=== PATIENT | female | born 1980 | race Caucasian/White ===

== ENCOUNTER 2017-07-03 19:32 | Inpatient (IN) | payer BC, OTHER ==
[~2017-07-03] VITALS: Ht 154.9 cm; Wt 54.2 kg
[~2017-07-03 19:32] MED LIST: ACET-1256 PO; OXYC-57 PO; PHNRUNK PO
[2017-07-03] MEDS ORDERED: METHYLPREDNISOLONE 125 MG VIAL IV STA (19:49)
--- NOTE | 2017-07-03 19:50 | EMERGENCY ROOM VISIT NOTE ---
History Report prepared by Vishnu: Yue Borrego Under the Supervision of: Dr. Aly Torrez M.D. 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 She denies ever being intubated or in the ICU for her asthma. She was a former smoker and stopped smoking in April 2017. She has a dry cough but denies any fevers or chills. She notes she has taken 15 pumps of her rescue inhaler, but there is been no improvement. She denies any recent travel, exogenous hormone usage, hemoptysis. 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 A total of ten systems were reviewed and were otherwise negative. Past Medical & Surgical Medical Problems: (1) Respiratory failure, acute Family History FH: cancer FH: diabetes mellitus No pertinent family history Social History Smoking Status: Former Smoker Smokeless Tobacco Use: Yes (half a pack) Alcohol Use: none Occupation Status: employed Current/Historical Medications Scheduled Montelukast Sodium (Singulair), 10 MG PO DAILY Scheduled PRN Albuterol Sulfate (Proair Respiclick), 2 PUFFS INH UD PRN for Rescue/SOB/ Wheezing Loratadine (Claritin), 10 MG PO DAILY PRN for Allergy Symptoms Allergies Coded Allergies: No Known Allergies (Unverified , 12/21/09) Physical Exam Vital Signs Date Time Temp Pulse Resp B/P (MAP) Pulse Ox O2 Delivery O2 Flow Rate FiO2 07/03/17 22:03 87 07/03/17 21:20 97 21 111/63 07/03/17 20:21 Nasal Cannula 3.0 07/03/17 20:20 85 07/03/17 20:10 82 20 93 Nasal Cannula 3.0 07/03/17 19:50 90 Room Air 07/03/17 19:41 36.7 86 24 149/89 91 Room Air Physical Exam Physical Exam GENERAL: She is oriented to person, place, and time. She appears well- developed and well-nourished. She does appear distressed. ____ HENT: Exam performed. Head: Normocephalic and atraumatic. Right Ear: External ear normal. No mastoid tenderness. Left Ear: External ear normal. No mastoid tenderness. Mouth/Throat: The oropharynx is clear and moist. No trismus in the jaw. No dental abscesses or uvula swelling. No oropharyngeal exudate or tonsillar abscesses. ____ EYES: Conjunctivae and EOM are normal. Pupils are equal, round, and reactive to light. Right eye exhibits no discharge. Left eye exhibits no discharge. No scleral icterus. ____ NECK: Normal range of motion. Neck supple. No JVD present. No spinous process tenderness present. No carotid bruit present. No rigidity. No tracheal deviation and normal range of motion present. No Brudzinski's sign and no Kernig 's sign noted. ____ CV: Tachycardic rate, regular rhythm, normal heart sounds and intact distal pulses. There is no peripheral edema. Palpable radial pulses bue. ____ PULM/CHEST: Diffuse expiratory wheezes and retractions. Chest Wall: She exhibits no tenderness. ____ ABD: The abdomen is soft. Bowel sounds are normal. She has no distension. No mass is present. There is no tenderness. There is no rebound, no guarding, no Alatorre's sign and no tenderness at McBurney's point. Rovsig negative MUSC/SKEL: Normal range of motion. There is no peripheral edema, tenderness or deformity. LYMPH: No cervical adenopathy. ____ NEURO: She is alert and oriented to person, place, and time. She has normal strength. No cranial nerve deficit or sensory deficit. Coordination and gait normal. GCS eye subscore is 4. GCS verbal subscore is 5. GCS motor subscore is 6. Cerebellar tests wnl. ____ SKIN: Skin is warm and dry. She is not diaphoretic. ____ PSYCH: She has a normal mood and affect. Her behavior is normal. Judgment and thought content normal. ____ Medical Decision & Procedures ER Provider Diagnostic Interpretation: Radiology results as stated below per my review and radiologist interpretation: SINGLE VIEW CHEST CLINICAL HISTORY: Wheezing. Dyspnea. FINDINGS: An AP, portable, upright chest radiograph is compared to study dated 07/28/2014. The examination is degraded by portable technique and patient rotation. The cardiomediastinal silhouette is unremarkable. The lungs and pleural spaces are clear. No pneumothorax is seen. The bony thorax is grossly intact. IMPRESSION: No active disease in the chest. Electronically signed by: Loco Mccormick M.D. 07/03/2017 8:27 PM Dictated Date/Time: 07/03/2017 8:26 PM Laboratory Results 07/03/17 19:55 Red Blood Count 4.72, Mean Corpuscular Volume 88.8, Mean Corpuscular Hemoglobin 31.1, Mean Corpuscular Hemoglobin Concent 35.1, Mean Platelet Volume 9.6, Neutrophils (%) (Auto) 58.7, Lymphocytes (%) (Auto) 27.2, Monocytes (%) (Auto) 7.0, Eosinophils (%) (Auto) 6.6, Basophils (%) (Auto) 0.3, Neutrophils # (Auto) 5.52, Lymphocytes # (Auto) 2.56, Monocytes # (Auto) 0.66, Eosinophils # (Auto) 0.62, Basophils # (Auto) 0.03 07/03/17 19:55 Test 07/03/17 19:55 07/03/17 20:10 White Blood Count 9.41 K/uL (4.8-10.8) Red Blood Count 4.72 M/uL (4.2-5.4) Hemoglobin 14.7 g/dL (12.0-16.0) Hematocrit 41.9 % (37-47) Mean Corpuscular Volume 88.8 fL (80-100) Mean Corpuscular Hemoglobin 31.1 pg (25-34) Mean Corpuscular Hemoglobin Concent 35.1 g/dl (32-36) Platelet Count 278 K/uL (130-400) Mean Platelet Volume 9.6 fL (7.4-10.4) Neutrophils (%) (Auto) 58.7 % Lymphocytes (%) (Auto) 27.2 % Monocytes (%) (Auto) 7.0 % Eosinophils (%) (Auto) 6.6 % Basophils (%) (Auto) 0.3 % Neutrophils # (Auto) 5.52 K/uL (1.4-6.5) Lymphocytes # (Auto) 2.56 K/uL (1.2-3.4) Monocytes # (Auto) 0.66 K/uL (0.11-0.59) Eosinophils # (Auto) 0.62 K/uL (0-0.5) Basophils # (Auto) 0.03 K/uL (0-0.2) RDW Standard Deviation 41.8 fL (36.4-46.3) RDW Coefficient of Variation 12.8 % (11.5-14.5) Immature Granulocyte % (Auto) 0.2 % Immature Granulocyte # (Auto) 0.02 K/uL (0.00-0.02) Anion Gap 6.0 mmol/L (3-11) Est Creatinine Clear Calc Drug Dose 74.5 ml/min Estimated GFR () 112.6 Estimated GFR (Non- 97.1 BUN/Creatinine Ratio 9.6 (10-20) Calcium Level 9.1 mg/dl (8.5-10.1) Magnesium Level 2.0 mg/dl (1.8-2.4) Venous Blood pH 7.41 (7.36-7.41) Venous Blood Partial Pressure CO2 44 mmHg (38.0-50.0) Venous Blood Partial Pressure O2 21 mmHg Venous Blood HCO3 27 mmol/L Venous Blood Oxygen Saturation < 60.0 % Venous Blood Base Excess 2.1 mEq/L Lactic Acid Level 1.6 mmol/L (0.4-2.0) Laboratory results reviewed by me Medications Administered Medications (Trade) Dose Ordered Sig/Dina Route Start Time Stop Time Status Last Admin Dose Admin Albuterol/ Ipratropium (Duoneb) 12 ml ONE ONCE INH 07/03/17 20:00 07/03/17 20:01 DC 07/03/17 20:09 12 ML Methylprednisolone Sodium Succinate (Solu-Medrol IV) 125 mg NOW STAT IV 07/03/17 19:49 07/03/17 19:51 DC 07/03/17 20:15 125 MG Sodium Chloride 1,000 ml @ 999 mls/hr Q1H1M STAT IV 07/03/17 19:58 07/03/17 21:03 DC 07/03/17 20:15 999 MLS/HR Albuterol/ Ipratropium (Duoneb) 3 ml NOW STAT INH 07/03/17 22:00 07/03/17 22:01 DC 07/03/17 22:03 3 ML ED Course 1947: The patient was evaluated in room B2. A complete history and physical exam was performed. Patient was immediately hooked up to rock wool applicator where her oxygen saturation continued to be 90%, she was started on 2 L oxygen. She stated she felt better with the oxygen. Labs ordered. Respiratory call to deliver the patient continuous albuterol treatment. 1948: Solu-Medrol IV 125 mg IV 1957: Sodium Chloride 1000 ml @ 999 mls/hr IV 2004: I checked on the patient at this time. She is currently getting her nebulizer treatment, and she feels much better. Her retractions have ceased. Her stats are stable on the nebulizer treatment. Labs and imaging are pending. 2202: Labs within normal limits. Chest x-ray within normal limits. Status post hour long DuoNeb treatment, the patient states she feels better. On lung auscultation she continues to have wheezing. The patient was taken off oxygen and attempted to have a walking oxygen saturation on, the patient immediately became tachypneic started wheezing and stated she felt like her asthma was but the flareup, her oxygen saturation dropped to 87% on room air. The patient was placed back on oxygen and given a repeat DuoNeb. Discussed the patient's case with Dr. Pearson, [facility]. The patient will be evaluated for further treatment and disposition. Medical Decision 1947: The patient was evaluated in room B2. A complete history and physical exam was performed. Patient was immediately hooked up to rock wool applicator where her oxygen saturation continued to be 90%, she was started on 2 L oxygen. She stated she felt better with the oxygen. Labs ordered. Respiratory call to deliver the patient continuous albuterol treatment. 1948: Solu-Medrol IV 125 mg IV 1957: Sodium Chloride 1000 ml @ 999 mls/hr IV 2004: I checked on the patient at this time. She is currently getting her nebulizer treatment, and she feels much better. Her retractions have ceased. Her stats are stable on the nebulizer treatment. Labs and imaging are pending. 2202: Labs within normal limits. Chest x-ray within normal limits. Status post hour long DuoNeb treatment, the patient states she feels better. On lung auscultation she continues to have wheezing. The patient was taken off oxygen and attempted to have a walking oxygen saturation on, the patient immediately became tachypneic started wheezing and stated she felt like her asthma was but the flareup, her oxygen saturation dropped to 87% on room air. The patient was placed back on oxygen and given a repeat DuoNeb. Discussed the patient's case with Arabella Diaz. The patient will be evaluated for further treatment and disposition. Medication Reconcilliation Current Medication List: was personally reviewed by me Blood Pressure Screening Patient's blood pressure: Elevated blood pressure Blood pressure disposition: Elevated BP felt to be situational Consults Time Called: 2199 Consulting Physician: Arabella Diaz Returned Call: 2201 He will further valuate the patient. Impression Primary Impression: Hypoxia Additional Impression: Status asthmaticus Critical Care I have personally spent greater than 58 minutes of critical care time in the direct management of this patient. This includes bedside care, interpretation of diagnostic studies, and testing, discussion with consultants, patient, and family members, and other required patient management activities. This 58 minutes is in excess of all separately billable procedures. Scribe Attestation The scribe's documentation has been prepared under my direction and personally reviewed by me in its entirety. I confirm that the note above accurately reflects all work, treatment, procedures, and medical decision making performed by me. The chart was completed utilizing [employer] Speech voice recognition software. Grammatical errors, random word insertions, pronoun errors, and incomplete sentences are an occasional consequence of this system due to software limitations, ambient noise, and hardware issues. Any formal questions or concerns about the content, text, or information contained within the body of this dictation should be directly addressed to the physician for clarification. Departure Information Dispostion Being Evaluated By Hospitalist ([facility] Referrals No Doctor, Assigned (PCP) Patient Instructions My [facility] Problem Qualifiers Additional Impression: Status asthmaticus Asthma severity: moderate Asthma persistence: persistent Qualified Codes: J45.42 - Moderate persistent asthma with status asthmaticus
[2017-07-03] MEDS ORDERED: SODIUM CHLORIDE 0.9% 1000ML 1,000 ML IV STA (19:58)
[2017-07-03] MEDS ORDERED: ALBUT/IPRATROP 3MG/0.5MG NEB 3 ML VIAL INH ONE (20:00)
[2017-07-03 20:10] VITALS: PULSE 82; O2SAT 93
[2017-07-03 20:17] LABS: BASO % 0.3 %; BASO ABS # 0.03 K/uL (0-0.2); EOS % 6.6 %; EOS ABS # 0.62 K/uL (0-0.5); HEMATOCRIT 41.9 % (37-47); HEMOGLOBIN 14.7 g/dL (12.0-16.0); IG# 0.02 K/uL (0.00-0.02); LYMPH % 27.2 %; LYMPH ABS # 2.56 K/uL (1.2-3.4); MEAN CELL VOLUME 88.8 fL (80-100); MEAN CORPUSCULAR HEMOGLOBIN 31.1 pg (25-34); MEAN CORPUSCULAR HGB CONC 35.1 g/dl (32-36); MEAN PLATELET VOLUME 9.6 fL (7.4-10.4); MONO ABS # 0.66 K/uL (0.11-0.59); NEUT % 58.7 %; NEUT ABS # 5.52 K/uL (1.4-6.5); PLATELET COUNT 278 K/uL (130-400); RED CELL DISTRIBUTION WIDTH CV 12.8 % (11.5-14.5); RED CELL DISTRIBUTION WIDTH SD 41.8 fL (36.4-46.3); WHITE BLOOD COUNT 9.41 K/uL (4.8-10.8)
--- NOTE | 2017-07-03 20:28 | DIAGNOSTIC IMAGING REPORT ---
SINGLE VIEW CHEST CLINICAL HISTORY: Wheezing. Dyspnea. FINDINGS: An AP, portable, upright chest radiograph is compared to study dated 07/28/2014. The examination is degraded by portable technique and patient rotation. The cardiomediastinal silhouette is unremarkable. The lungs and pleural spaces are clear. No pneumothorax is seen. The bony thorax is grossly intact. IMPRESSION: No active disease in the chest. Electronically signed by: Loco Mccormick M.D. 07/03/2017 8:27 PM Dictated Date/Time: 07/03/2017 8:26 PM
[2017-07-03 20:37] LABS: CALCIUM 9.1 mg/dl (8.5-10.1); CREATININE 0.78 mg/dl (0.60-1.20)
[2017-07-03] MEDS ORDERED: CLR10 PO (21:51)
[2017-07-03] MEDS ORDERED: ALBU18002 INH (21:51)
[2017-07-03] MEDS ORDERED: MONT1TAB3 PO (21:51)
[2017-07-03] MEDS ORDERED: ALBUT/IPRATROP 3MG/0.5MG NEB 3 ML VIAL INH STA (22:00)
[2017-07-03] MEDS ORDERED: POTASSIUM CHLORIDE 10 MEQ TABCR PO STA (22:03)
[2017-07-03 22:23] LABS: PTT PATIENT 27.6 SECONDS (21.0-31.0)
[2017-07-03] MEDS ORDERED: GUAIFENESIN 600 MG TABCR PO ONE (22:52)
[2017-07-03] MEDS ORDERED: ACETAMINOPHEN 325 MG TAB PO PRN (23:00)
[2017-07-03] MEDS ORDERED: NSS + 20MEQ KCL 1000ML 1,000 ML IV ONE (23:00)
[2017-07-03] MEDS ORDERED: LEVALBUTEROL/IPRATROPIUM NEB INH PRN (23:00)
[2017-07-03] MEDS ORDERED: LORATADINE 10 MG TAB PO PRN (23:00)
[2017-07-03] MEDS ORDERED: METHYLPREDNISOLONE 4MG TAB, 6 DAY TAPER PO SCH (23:00)
[2017-07-03] MEDS ORDERED: LORAZEPAM 2 MG/ML 1 ML VIAL IV PRN (23:00)
[2017-07-03] MEDS ORDERED: TRAMADOL HCL 50 MG TAB PO PRN (23:00)
--- NOTE | 2017-07-03 23:42 | HISTORY & PHYSICAL EXAMINATION ---
DATE OF ADMISSION: 07/03/2017 PRIMARY CARE PHYSICIAN: Dr. Baptiste. CHIEF COMPLAINT: Shortness of breath. HISTORY OF PRESENT ILLNESS: History obtained from patient and records. Medical history significant for asthma, past tobacco abuse. P the patient has had asthma since childhood. No prior intubations for asthma. Usual precipitants include cat dander and change in weather, some chemicals. Usual rescue inhaler use is about twice weekly. No recent hospitalizations, ER visits for asthma. Last asthma exacerbation was last month after exposure to cat dander. About 2 nights ago, the patient noted asthma attack w/ dry cough symptoms, wheezing, increasing shortness of breath despite rescue inhaler use about 15 times/daily. No chest pain, no fever, no flulike symptoms. Patient stopped smoking some time ago but admits to recent vape use. At the ER, the patient received Solu-Medrol and DuoNebs for asthma exacerbation. O2 sats noted to be 80s despite above intervention. MEDICAL HISTORY: As above. SURGERIES: Foot surgery. HOME MEDICATIONS: Include Singulair, loratadine. ALLERGIES: No known drug allergies. FAMILY HISTORY: Diabetes. PERSONAL AND SOCIAL HISTORY: Past tobacco use. Occasional alcoholic beverage intake. [employer] forensic audit expert REVIEW OF SYSTEMS: As per HPI. All 10 systems reviewed , all other ROS negative. PHYSICAL EXAMINATION: VITAL SIGNS: Blood pressure was noted to be 149/ 89, later 111/60, pulse rate 67, RR 24, O2 sats 90 on room air, later 87 on room air and later 93 on 2 liters. GENERAL: Noted to be in slightly anxious, minimal resp distress. SKIN: Normal color, warm. HEENT: Pale palpebral conjunctiva. No ptosis. Dry mucosa. NECK: Supple, nontender. LUNGS: Decreased breath sounds. Expiratory wheezes. HEART: Regular rate and rhythm, no murmur. ABDOMEN: Some distention, nontender. EXTREMITIES: No edema. No gross deformities. No tenderness. NEUROLOGIC: Coherent. No gross focality. LABORATORY DATA: Hemoglobin was noted to be 14.7, hematocrit 41.9, white blood cell count 9.41, platelets 278. Sodium noted to 136, potassium 3, chloride 105, CO2 26, BUN 8, creatinine 0.7, glucose 69. Venous blood gas showed a pH of 7.41, pCO2 of 44. CXR no active disease ASSESSMENT: 1. Acute hypoxemic respiratory distress secondary to asthma exacerbation. 2. Past tobacco abuse, current vape use 3. Hypokalemia, hypoglycemia possibly secondary to poor p.o. intake PLAN. GMF Supplemental O2 Medrol Dosepak. Nebs RTC, p.r.n. Patient counseled on stopping vaping. Replace potassium, check mag. DVT prophylaxis, Lovenox subQ. Full code. MTDD
[2017-07-04] VITALS (12 sets, daily range): BP systolic 103–111; BP diastolic 63–68; PULSE 77–97; TEMP 36.5–37; O2SAT 88–95; Ht 154.9 cm; Wt 54.2 kg
[2017-07-04] MEDS ORDERED: NSS + 20MEQ KCL 1000ML 1,000 ML IV ONE (00:30)
[2017-07-04] MEDS ORDERED: POTASSIUM CHLORIDE 10 MEQ TABCR PO ONE (01:00)
[2017-07-04] MEDS ORDERED: LEVALBUTEROL 1.25MG/0.5ML NEB INH PRN (01:00)
[2017-07-04] MEDS ORDERED: IPRATROPIUM BROMIDE NEB SOLN 0.02% 2.5 ML VIAL INH PRN (01:00)
[2017-07-04] MEDS ORDERED: LORAZEPAM INJ 0.5 MG in SYRINGE 0.75 ML IV PRN (01:00)
[2017-07-04] MEDS: LEVALBUTEROL 1.25MG/0.5ML NEB INH SCH ×3 (01:39→14:52)
[2017-07-04] MEDS: IPRATROPIUM BROMIDE NEB SOLN 0.02% 2.5 ML VIAL INH SCH ×3 (01:40→14:52)
[2017-07-04] MEDS ORDERED: PNEUMOCOCCAL POLYSACCHARIDES 25 MCG/0.5 ML VIAL/SYR IM. ONE (01:45)
[2017-07-04] MEDS ORDERED: INFLUENZA VIRUS QUAD VACCINE 0.5 ML SYR IM. ONE (01:45)
[2017-07-04] MEDS ORDERED: PNEUMOCOCCAL ADMINISTRATION CHARGE ONE (01:45)
[2017-07-04] MEDS ORDERED: INFLUENZA ADMINISTRATION CHARGE ONE (01:45)
[2017-07-04] MEDS ORDERED: LEVALBUTEROL/IPRATROPIUM NEB INH SCH (03:00)
[2017-07-04 06:56] LABS: BASO % 0.1 %; BASO ABS # 0.01 K/uL (0-0.2); HEMATOCRIT 37.3 % (37-47); HEMOGLOBIN 13.3 g/dL (12.0-16.0); IG# 0.01 K/uL (0.00-0.02); LYMPH % 7.7 %; MEAN CELL VOLUME 88.8 fL (80-100); MEAN CORPUSCULAR HEMOGLOBIN 31.7 pg (25-34); MEAN CORPUSCULAR HGB CONC 35.7 g/dl (32-36); MEAN PLATELET VOLUME 9.6 fL (7.4-10.4); MONO % 1.8 %; MONO ABS # 0.14 K/uL (0.11-0.59); NEUT % 90.3 %; PLATELET COUNT 259 K/uL (130-400); RED CELL DISTRIBUTION WIDTH SD 41.9 fL (36.4-46.3); WHITE BLOOD COUNT 7.76 K/uL (4.8-10.8)
[2017-07-04] MEDS ORDERED: METHYLPREDNISOLONE 4 MG TAB PO SCH ×2 (07:00→13:00)
[2017-07-04 07:37] LABS: CALCIUM 9.2 mg/dl (8.5-10.1); CREATININE 0.71 mg/dl (0.60-1.20); POTASSIUM 4.3 mmol/L (3.5-5.1)
[2017-07-04] MEDS ORDERED: METHYLPREDNISOLONE 4MG TAB, 6 DAY TAPER PO SCH (08:00)
[2017-07-04] MEDS ORDERED: ENOXAPARIN 30 MG/0.3 ML SYR SQ SCH (09:00)
[2017-07-04] MEDS ORDERED: GUAIFENESIN 600 MG TABCR PO SCH (09:00)
[2017-07-04] MEDS ORDERED: MONTELUKAST SOD 10 MG TAB PO SCH (09:00)
--- NOTE | 2017-07-04 14:29 | Progress Note ---
Medicine Progress Note Date & Time of Visit: Jul 04, 2017 at 14:29 . Subjective Admitted with exacerbation of asthma. Feels much better. Nonproductive cough improved. Wheezing and dyspnea improved. Ambulating in hallway on room air without difficulty. . Objective Last 8 Hrs Date Time Temp Pulse Resp B/P (MAP) Pulse Ox O2 Delivery O2 Flow Rate FiO2 07/04/17 14:00 94 Room Air 07/04/17 13:35 92 Nasal Cannula 2.0 07/04/17 13:30 88 Room Air 07/04/17 08:00 94 Nasal Cannula 2.0 07/04/17 07:15 36.6 87 22 103/63 (76) 94 Nasal Cannula 4.0 07/04/17 07:12 97 18 95 Nasal Cannula 2.0 Physical Exam: General- young adult female in no distress Lungs- diffuse mild wheezing; no respiratory distress Cardiovascular- RRR; no pretibial edema Abdomen- + bowel sounds, soft, nontender Extremities- no cyanosis; no calf tenderness Neuro- alert, oriented Skin- warm & dry . Laboratory Results: Last 24 Hours Test 07/03/17 19:50 07/03/17 19:55 07/03/17 20:10 07/04/17 00:35 Urine Test NEG White Blood Count 9.41 K/uL Red Blood Count 4.72 M/uL Hemoglobin 14.7 g/dL Hematocrit 41.9 % Mean Corpuscular Volume 88.8 fL Mean Corpuscular Hemoglobin 31.1 pg Mean Corpuscular Hemoglobin Concent 35.1 g/dl Platelet Count 278 K/uL Mean Platelet Volume 9.6 fL Neutrophils (%) (Auto) 58.7 % Lymphocytes (%) (Auto) 27.2 % Monocytes (%) (Auto) 7.0 % Eosinophils (%) (Auto) 6.6 % Basophils (%) (Auto) 0.3 % Neutrophils # (Auto) 5.52 K/uL Lymphocytes # (Auto) 2.56 K/uL Monocytes # (Auto) 0.66 K/uL Eosinophils # (Auto) 0.62 K/uL Basophils # (Auto) 0.03 K/uL RDW Standard Deviation 41.8 fL RDW Coefficient of Variation 12.8 % Immature Granulocyte % (Auto) 0.2 % Immature Granulocyte # (Auto) 0.02 K/uL Activated Partial Thromboplast Time 27.6 SECONDS Partial Thromboplastin Ratio 1.1 D-Dimer 260 ug/L FEU Sodium Level 137 mmol/L Potassium Level 3.0 mmol/L Chloride Level 105 mmol/L Carbon Dioxide Level 26 mmol/L Anion Gap 6.0 mmol/L Blood Urea Nitrogen 8 mg/dl Creatinine 0.78 mg/dl Est Creatinine Clear Calc Drug Dose 74.5 ml/min Estimated GFR () 112.6 Estimated GFR (Non- 97.1 BUN/Creatinine Ratio 9.6 Random Glucose 69 mg/dl Calcium Level 9.1 mg/dl Magnesium Level 2.0 mg/dl Venous Blood pH 7.41 Venous Blood Partial Pressure CO2 44 mmHg Venous Blood Partial Pressure O2 21 mmHg Venous Blood HCO3 27 mmol/L Venous Blood Oxygen Saturation < 60.0 % Venous Blood Base Excess 2.1 mEq/L Lactic Acid Level 1.6 mmol/L Troponin I < 0.015 ng/ml Test 07/04/17 06:31 07/04/17 07:38 07/04/17 11:33 White Blood Count 7.76 K/uL Red Blood Count 4.20 M/uL Hemoglobin 13.3 g/dL Hematocrit 37.3 % Mean Corpuscular Volume 88.8 fL Mean Corpuscular Hemoglobin 31.7 pg Mean Corpuscular Hemoglobin Concent 35.7 g/dl Platelet Count 259 K/uL Mean Platelet Volume 9.6 fL Neutrophils (%) (Auto) 90.3 % Lymphocytes (%) (Auto) 7.7 % Monocytes (%) (Auto) 1.8 % Eosinophils (%) (Auto) 0.0 % Basophils (%) (Auto) 0.1 % Neutrophils # (Auto) 7.00 K/uL Lymphocytes # (Auto) 0.60 K/uL Monocytes # (Auto) 0.14 K/uL Eosinophils # (Auto) 0.00 K/uL Basophils # (Auto) 0.01 K/uL RDW Standard Deviation 41.9 fL RDW Coefficient of Variation 13.0 % Immature Granulocyte % (Auto) 0.1 % Immature Granulocyte # (Auto) 0.01 K/uL Prothrombin Time 10.7 SECONDS Prothromb Time International Ratio 1.0 Sodium Level 138 mmol/L Potassium Level 4.3 mmol/L Chloride Level 110 mmol/L Carbon Dioxide Level 19 mmol/L Anion Gap 9.0 mmol/L Blood Urea Nitrogen 7 mg/dl Creatinine 0.71 mg/dl Est Creatinine Clear Calc Drug Dose 81.8 ml/min Estimated GFR () 126.1 Estimated GFR (Non- 108.8 BUN/Creatinine Ratio 9.4 Random Glucose 163 mg/dl Calcium Level 9.2 mg/dl Bedside Glucose 158 mg/dl 109 mg/dl Assessment & Plan EXACERBATION ASTHMA No infiltrates on chest x-ray. Exacerbation could be secondary to elevation of chemical irritants (vaping, cleaning solutions at work). No apparent infectious process. Discharge on methylprednisolone taper, albuterol, montelukast. Monitor peak flow rates. Consider follow-up PFTs. Consider long-acting inhaled steroids. Avoid potential triggers. VTE PROPHYLAXIS SQ enoxaparin. Ambulating. DISPOSITION Discharge to home. Family Medicine follow-up with Dr. Baptiste. , Current Inpatient Medications: Current Inpatient Medications Medications (Trade) Dose Ordered Sig/Dina Route Start Time Stop Time Status Last Admin Dose Admin Enoxaparin Sodium (Lovenox Inj) 30 mg DAILY SQ 07/04/17 09:00 08/03/17 08:59 07/04/17 08:51 30 MG Acetaminophen (Tylenol Tab) 650 mg Q4H PRN PO 07/03/17 23:00 08/02/17 22:59 Lorazepam (Ativan Inj) 0.5 mg Q4H PRN IV 07/03/17 23:00 08/02/17 22:59 Guaifenesin (Mucinex Contr Rel Tab) 600 mg Q12 PO 07/04/17 09:00 08/03/17 08:59 07/04/17 08:47 600 MG Tramadol HCl (Ultram Tab) 25 mg Q6H PRN PO 07/03/17 23:00 08/02/17 22:59 Loratadine (Claritin Tab) 10 mg DAILY PRN PO 07/03/17 23:00 08/02/17 22:59 Montelukast Sodium (Singulair Tab) 10 mg DAILY PO 07/04/17 09:00 08/03/17 08:59 07/04/17 08:46 10 MG Ipratropium [place] (Atrovent 0.02% 0.5MG/2.5ML Neb) 0.5 mg Q6R INH 07/04/17 03:00 08/03/17 02:59 07/04/17 07:11 0.5 MG Levalbuterol (Xopenex 1.25MG/ 0.5ML Neb) 1.25 mg Q6R INH 07/04/17 03:00 08/03/17 02:59 07/04/17 07:11 1.25 MG Ipratropium [place] (Atrovent 0.02% 0.5MG/2.5ML Neb) 0.5 mg Q4H PRN INH 07/04/17 01:00 08/03/17 00:59 07/04/17 05:38 0.5 MG Levalbuterol (Xopenex 1.25MG/ 0.5ML Neb) 1.25 mg Q4H PRN INH 07/04/17 01:00 08/03/17 00:59 07/04/17 05:38 1.25 MG Lorazepam 0.5 mg/ Syringe 1 ml @ 1 mls/min Q4H PRN IV 07/04/17 01:00 08/03/17 00:59 Methylprednisolone (Medrol Tab) 8 mg 07,21 PO 07/04/17 07:00 07/04/17 21:01 07/04/17 06:22 8 MG Methylprednisolone (Medrol Tab) 4 mg 13,18 PO 07/04/17 13:00 07/04/17 18:01 07/04/17 12:47 4 MG Methylprednisolone (Medrol Tab) 4 mg 07,13,18 PO 07/05/17 07:00 07/05/17 18:01 Methylprednisolone (Medrol Tab) 8 mg HS PO 07/05/17 21:00 07/05/17 21:01 Methylprednisolone (Medrol Tab) 4 mg 07,13,18,21 PO 07/06/17 07:00 07/06/17 21:01 Methylprednisolone (Medrol Tab) 4 mg 07,13,21 PO 07/07/17 07:00 07/07/17 21:01 Methylprednisolone (Medrol Tab) 4 mg 07,21 PO 07/08/17 07:00 07/08/17 21:01 Methylprednisolone (Medrol Tab) 4 mg 07 PO 07/09/17 07:00 07/09/17 07:01
[2017-07-04] MEDS ORDERED: METHYLPREDNISOLONE 4 MG TAB PO ONE (14:30)
[2017-07-04] MEDS ORDERED: METH4PAK PO (14:32)
--- NOTE | 2017-07-04 14:34 | Discharge Instructions ---
Discharge Instructions Date of Service Jul 04, 2017. Admission Reason for Admission: asthma . Discharge Discharge Diagnosis / Problem: asthma Discharge Goals Goal(s): Improve function, Improve disease control Activity Recommendations Activity Limitations: as noted below Exercise/Sports Limitations: gradually increase as tolerated . Current Hospital Diet Patient's current hospital diet: Regular Diet Discharge Diet Recommended Diet: Regular Diet Pending Studies Studies pending at discharge: no Work Instructions Return To Work: after follow-up Additional Instructions: Ray Trevizo was absent from work since 07/03/17 because of illness. Return to work date to be determined after recheck in office. Thank you. Medical Emergencies . Who to Call and When: Medical Emergencies: If at any time you feel your situation is an emergency, please call 911 immediately. . Non-Emergent Contact Non-Emergency issues call your: Primary Care Provider, Hospital Doctor . . "Provider Documentation" section prepared by Vasu Watkins. .
--- NOTE | 2017-07-04 14:45 | Discharge Instructions ---
Discharge Instructions Date of Service Jul 04, 2017. Admission Reason for Admission: asthma . Discharge Discharge Diagnosis / Problem: asthma Discharge Goals Goal(s): Improve disease control Activity Recommendations Activity Limitations: as noted below Exercise/Sports Limitations: gradually increase as tolerated . Instructions / Follow-Up Instructions / Follow-Up APPOINTMENTS: FAMILY MEDICINE 07/07/2017 11:00 AM Melita Baptiste, DO OTHER INSTRUCTIONS: Avoid harsh chemical fumes, dust, and smoke. Check your peak flow rate every morning and record results. Please discuss your worsening asthma with Dr. Baptiste. It might be time to repeat pulmonary function tests or try some additional medications. Take methylprednisolone (Medrol) as directed. Prescription was sent to your pharmacy. Seek medical attention if you have: * temperature above 101 * chest pain or trouble breathing * worsening peak flow rate * any unanswered questions or concerns Call 911 if symptoms are severe. Call if you have any questions or problems. My cell # is [phone]. You can also reach a [facility] hospitalist on duty at [facility] 24 hours a day by calling [phone]. Please take good care of yourself. Vaus Watkins . Current Hospital Diet Patient's current hospital diet: Regular Diet Discharge Diet Recommended Diet: Regular Diet Pending Studies Studies pending at discharge: no Work Instructions Return To Work: after follow-up Additional Instructions: Ray Trevizo was absent from work since 07/03/17 because of illness. Return to work date to be determined after recheck in office. Thank you. Medical Emergencies . Who to Call and When: Medical Emergencies: If at any time you feel your situation is an emergency, please call 911 immediately. . Non-Emergent Contact Non-Emergency issues call your: Primary Care Provider, Hospital Doctor . . "Provider Documentation" section prepared by Vasu Watkins. .
[2017-07-05] MEDS ORDERED: METHYLPREDNISOLONE 4 MG TAB PO SCH ×2 (07:00→21:00)
[2017-07-06] MEDS ORDERED: METHYLPREDNISOLONE 4 MG TAB PO SCH (07:00)
--- NOTE | 2017-07-06 22:37 | Discharge Summary ---
Discharge Summary Date of Service Jul 06, 2017. Discharge Summary Admission Date: Jul 03, 2017 at 22:28 Discharge Date: Jul 04, 2017 Discharge Disposition: Home Principal Diagnosis: exacerbation of asthma . Procedures: IV meds . Medication Reconciliation New Medications: Methylprednisolone (Medrol Dosepak) 4 Mg Geo 0 PO DAILY, #1 PKT Use as directed starting on 07/05/17. Continued Medications: Albuterol Sulfate (Proair Respiclick) 108 Mcg/Act Aer 2 PUFFS INH UD PRN for Rescue/SOB/Wheezing Loratadine (Claritin) 10 Mg Tab 10 MG PO DAILY PRN for Allergy Symptoms, TAB Montelukast Sodium (Singulair) 10 Mg Tab 10 MG PO DAILY, TAB Admission Information HPI (per Admitting provider): History obtained from patient and records. Medical history significant for asthma, past tobacco abuse. P the patient has had asthma since childhood. No prior intubations for asthma. Usual precipitants include cat dander and change in weather, some chemicals. Usual rescue inhaler use is about twice weekly. No recent hospitalizations, ER visits for asthma. Last asthma exacerbation was last month after exposure to cat dander. About 2 nights ago, the patient noted asthma attack w/ dry cough symptoms, wheezing, increasing shortness of breath despite rescue inhaler use about 15 times/daily. No chest pain, no fever, no flulike symptoms. Patient stopped smoking some time ago but admits to recent vape use. At the ER, the patient received Solu-Medrol and DuoNebs for asthma exacerbation. O2 sats noted to be 80s despite above intervention. . Physical Exam (per Admitting): VITAL SIGNS: Blood pressure was noted to be 149/ 89, later 111/60, pulse rate 67, RR 24, O2 sats 90 on room air, later 87 on room air and later 93 on 2 liters. GENERAL: Noted to be in slightly anxious, minimal resp distress. SKIN: Normal color, warm. HEENT: Pale palpebral conjunctiva. No ptosis. Dry mucosa. NECK: Supple, nontender. LUNGS: Decreased breath sounds. Expiratory wheezes. HEART: Regular rate and rhythm, no murmur. ABDOMEN: Some distention, nontender. EXTREMITIES: No edema. No gross deformities. No tenderness. NEUROLOGIC: Coherent. No gross focality. . Hospital Course EXACERBATION ASTHMA No infiltrates on chest x-ray. Exacerbation could be secondary to elevation of chemical irritants (vaping, cleaning solutions at work). No apparent infectious process. Discharge on methylprednisolone taper, albuterol, montelukast. Monitor peak flow rates. Consider follow-up PFTs. Consider long-acting inhaled steroids. Avoid potential triggers. VTE PROPHYLAXIS SQ enoxaparin. Ambulating. DISPOSITION Discharge to home. Family Medicine follow-up with Dr. Baptiste. , Total time spent on discharge = 35 min. This includes examination of the patient, discharge planning, medication reconciliation, and communication with other providers. . Discharge Instructions Date of Service Jul 04, 2017. Admission Reason for Admission: asthma . Discharge Discharge Diagnosis / Problem: asthma Discharge Goals Goal(s): Improve disease control Activity Recommendations Activity Limitations: as noted below Exercise/Sports Limitations: gradually increase as tolerated . Instructions / Follow-Up Instructions / Follow-Up APPOINTMENTS: FAMILY MEDICINE 07/07/2017 11:00 AM Melita Baptiste, DO OTHER INSTRUCTIONS: Avoid harsh chemical fumes, dust, and smoke. Check your peak flow rate every morning and record results. Please discuss your worsening asthma with Dr. Baptiste. It might be time to repeat pulmonary function tests or try some additional medications. Take methylprednisolone (Medrol) as directed. Prescription was sent to your pharmacy. Seek medical attention if you have: * temperature above 101 * chest pain or trouble breathing * worsening peak flow rate * any unanswered questions or concerns Call 911 if symptoms are severe. Call if you have any questions or problems. My cell # is [phone]. You can also reach a [facility] hospitalist on duty at [facility] 24 hours a day by calling [phone]. Please take good care of yourself. Vasu Watkins . Current Hospital Diet Patient's current hospital diet: Regular Diet Discharge Diet Recommended Diet: Regular Diet Pending Studies Studies pending at discharge: no Work Instructions Return To Work: after follow-up Additional Instructions: Ray Trevizo was absent from work since 07/03/17 because of illness. Return to work date to be determined after recheck in office. Thank you. Medical Emergencies . Who to Call and When: Medical Emergencies: If at any time you feel your situation is an emergency, please call 911 immediately. Non-Emergent Contact Non-Emergency issues call your: Primary Care Provider, Hospital Doctor "Provider Documentation" section prepared by Vasu Watkins. . .
[2017-07-07] MEDS ORDERED: METHYLPREDNISOLONE 4 MG TAB PO SCH (07:00)
[2017-07-08] MEDS ORDERED: METHYLPREDNISOLONE 4 MG TAB PO SCH (07:00)
[2017-07-09] MEDS ORDERED: METHYLPREDNISOLONE 4 MG TAB PO SCH (07:00)
== END 2017-07-04 15:30 | disposition home or self-care (01) | DRG 203 ==
LOC: C.EDB 19:34 → C.MS2W 22:28 → ENRESERV 23:13
PROVIDERS: ADMIT Hospitalist; ATTEND Hospitalist
DX: J45.901 Unspecified asthma with (acute) exacerbation (principal); R09.02 Hypoxemia; R06.09 Other forms of dyspnea; E87.6 Hypokalemia; E16.2 Hypoglycemia, unspecified; F17.290 Nicotine dependence, other tobacco product, uncomplicated; Z51.81 Encounter for therapeutic drug level monitoring; Z79.899 Other long term (current) drug therapy; Z83.3 Family history of diabetes mellitus

== ENCOUNTER 2018-10-12 06:58 | Inpatient (IN) ==
[2018-10-12] MEDS ORDERED: ALBUT/IPRATROP 3MG/0.5MG NEB 3 ML VIAL NEB ONE (07:09)
[2018-10-12] MEDS ORDERED: MAGNESIUM SULFATE 1GM / D5W BAG IV STA (07:16)
[2018-10-12] MEDS ORDERED: AZITHROMYCIN 250 MG TAB PO ONE (07:16)
--- NOTE | 2018-10-12 07:18 | Emergency Department Note ---
ED Visit Note I assisted Dr. Tian with the care of this patient. Please refer to his note for additional details. . Resident Activity Tracking Resident Involvement: Resident Care Provided Care Provided: Adult ED
[2018-10-12] MEDS ORDERED: SODIUM CHLORIDE 0.9% 1000ML 1,000 ML IV ONE ×2 (07:23→09:29)
[2018-10-12 07:26] LABS: Basophils # (auto) 0.02 K/uL (0-0.2); Basophils % (auto) 0.1 %; Eosinophils # (auto) 0.24 K/uL (0-0.5); Eosinophils % (auto) 1.8 %; Hematocrit (blood only) 38.5 % (37-47); Hemoglobin 13.6 g/dL (12.0-16.0); Immature Granulocytes # (auto) 0.02 K/uL (0.00-0.02); Immature Granulocytes % (auto) 0.1 %; Lymphocytes # (auto) 1.74 K/uL (1.2-3.4); Lymphocytes % (auto) 12.8 %; Mean Corpuscular Hgb Conc 35.3 g/dL (32-36); Mean Platelet Volume 9.6 fL (7.4-10.4); Monocytes # (auto) 0.74 K/uL (0.11-0.59); Monocytes % (auto) 5.4 %; Neutrophils # (auto) 10.84 K/uL (1.4-6.5); Neutrophils % (auto) 79.8 %; Platelet Count 264 K/uL (130-400); RDW Coefficient of Variation 12.6 % (11.5-14.5); RDW Standard Deviation 40.7 fL (36.4-46.3); Red Blood Count 4.28 M/uL (4.2-5.4)
--- NOTE | 2018-10-12 07:37 | XRay Report ---
XR chest 1V portable CLINICAL HISTORY: 38 years-old Female presenting with dyspnea. TECHNIQUE: Portable upright AP view of the chest was obtained. COMPARISON: 07/03/2017. FINDINGS: Cardiomediastinal silhouette normal. Coarsened lung markings with vague added perihilar density and p ossible mild bronchial wall thickening. No other focal opacity. No large effusion or pneumothorax. Os seous structures normal. Upper abdomen normal. IMPRESSION: Findings may suggest reactive airways disease or viral bronchiolitis. No focal infiltrate to suggest pneumonia. Electronically signed by: Mac Gomez M.D. 10/12/2018 7:35 AM
[2018-10-12 07:44] LABS: BUN Creatinine Ratio 14.9 (10-20); Calcium 9.1 mg/dl (8.5-10.1); Creatinine Clr Calc Pharmacy 92.8 ml/min; Est GFR (African American) 132.6; Est GFR (Non-African American) 114.4; Potassium 3.9 mmol/L (3.5-5.1)
[2018-10-12] MEDS ORDERED: methylPREDNISolone 125 MG/2 ML VIAL IV STA (07:53)
[2018-10-12 07:56] LABS: Base Excess VBG -1.9 mEq/L; Oxygen Saturation VBG 61.4 %; pH VBG 7.38 (7.36-7.41)
--- NOTE | 2018-10-12 08:42 | History & Physical Report ---
Date of Service October 12, 2018 Assessment & Plan (1) Asthma exacerbation: Pt with hx asthma on prn albuterol only presented with severe SOB and wheezing worsened this morning. One week ago started with non-productive cough, congestion. No fever/chills. Upon EMS arrival reported pt's O2 sats in 80's. She had 1 duoneb and 3 albuterol neb treatments, Solumedrol 125mg IV en route. Was on 6L oxymask in ER with O2 sats of 91% and tachypnea 35. In ER pt given magnesium sulfate 2GM IV, hour long albuterol neb with some improvement of respiratory status with RR: 24, 94% on 6L oxymask, P: 86. Bipap was attempted however pt reports did not tolerate. WBC: 13, CXR: reactive airways disease or viral bronchiolitis. No focal infiltrate to suggest pneumonia. Probable triggers: URI, smoking ABG pending Currently respiratory status improved, monitor closely and consider bipap if worsening -Supplemental oxygen -Solumedrol 60mg Q6H IV -Duonebs scheduled -Will hold on further antibiotics until further pulmonology recommendations -Continue Singulair -Pulmonology consult (2) Tobacco use: -Smoking cessation encouraged. Also discussed avoiding vaping -Denies nicotine patch (3) Substance use disorder: Follows with [facility] in [place]. Last Rx filled on 10/01/18 for 14 day supply. -Continue Suboxone (4) Hyperglycemia: Glucose: 180 -A1c in am DVT Prophylaxis -SCDs Follows with Dr Baptiste for routine care Pt was seen and care coordinated with Dr Valenzuela. See addendum History of Present Illness Chief Complaint: SOB Primary Care Provider: Melita Baptiste DO PT is 38 y/o F with PMH asthma, tobacco use, substance use on suboxone presented to ER with c/o SOB. Pt states one week ago started with non-productive cough and congestion. Had increased SOB and wheezing and had been using her albuterol nebulizer 5-6 times a day past couple of days with short term relief of SOB. This morning had severe worsening SOB and presented to ER via EMS. En route had 1 duoneb & 3 albuterol nebulizer treatments, Solumedrol 125mg IV and was on 6L oxymask in ER with O2 sats of 91% and tachypnea. Pt admits to resuming smoking and currently smoking 1/2 ppd. She is also around cleaning chemicals at work. Pt states typically uses her albuterol inhaler a couple of times a week for SOB/wheezing. Triggers: URIs, allergies, chemicals, perfumes, exercise, vaping/smoking, humidity. Is not on inhaled steroids. Last asthma exacerbation 07/2018 and improved with IM and oral steroids and increased albuterol neb use. Last hospitalization for asthma exacerbation 06/2017. Has not required intubation in past. Denies fever/chills, diaphoresis, N/V/D/C, GABRIEL, dizziness, syncope, vision changes, neck pain, CP, orthopnea, palpitations, hemoptysis, sore throat, choking, otalgia, abdominal pain, paresthesias, weakness, extremity edema, rashes, urinary symptoms. Denies ill contacts. Denies other substance use. Allergies Allergy/AdvReac Type Severity Reaction Status Date / Time No Known Allergies Unverified 10/12/18 07:31 Home Medications Home Medications Medication Instructions Recorded Confirmed Type albuterol sulfate 2 puff INHALATION QID 10/12/18 10/12/18 History albuterol sulfate 2.5 mg INHALATION QID PRN 10/12/18 10/12/18 History buprenorphine-naloxone 0.5 tab SUBLINGUAL TID 10/12/18 10/12/18 History loratadine [Claritin] 10 mg PO DAILY PRN 10/12/18 10/12/18 History montelukast 10 mg PO QAM 10/12/18 10/12/18 History Past Med/Surg History Medical History Psoriasis (Chronic) Syncopal episodes (Resolved) Substance use disorder (Chronic) Tobacco use (Chronic) Asthma (Chronic) Surgical History History of foot surgery (Resolved) 2010 Clacaneal fracture Family History Other Diabetes Lung cancer Social History Preferred Language: Trinidadian Communication Ability: Effective Beliefs That Will Affect Care: None marital status: Single marital status details: Significant Other Current Living Situation: Significant Other Other Information That Helps Us Care for You: No Feels Safe at Home: Yes Safety Concerns: Feels Safe At This Time Smoking Status: Current every day smoker Tobacco Type: cigarettes Cigarettes P er Day: 1/2 ppd Do You Dip or Chew Tobacco: No Hx Alcohol Use: No Hx Substance Use: Yes Review of Systems Review of Systems: All systems reviewed & are unremarkable except as noted in HPI & below Physical Exam Physical Exam: General: mild respiratory distress, WDWN, appears tired Head: normocephalic, atraumatic Eyes: PERRL, EOM's intact, conjunctiva non-injected, anicteric ENT: normal inspection external ears, nose, mucous membranes dry Neck: supple, trachea midline Lungs: Currently on albuterol neb treatment with sats 96% and RR: 24, +diffuse wheezing, coarse breath sounds CV: RRR, no murmur, no pretibial edema Abd: normal BS, soft, non-tender Ext: no cyanosis, no calf tenderness Neuro: A&O x 3, no focal deficits noted, normal affect Skin: warm, dry Results & Data Vital Signs (Past 12 Hours) Vital Signs Temp Pulse Pulse Resp BP Pulse Ox 10/12/18 08:25 85 22 103/61 96 10/12/18 08:20 86 24 95 10/12/18 08:10 90 24 98 10/12/18 08:00 86 28 H 96 10/12/18 07:50 81 28 H 96 10/12/18 07:40 80 27 H 95 10/12/18 07:36 76 24 92 10/12/18 07:30 75 29 H 92 10/12/18 07:20 77 37 H 92 10/12/18 07:13 74 92 10/12/18 07:10 93 H 25 H 92 10/12/18 07:08 36.4 C L 74 35 H 106/69 91 10/12/18 07:07 78 33 H 91 10/12/18 07:05 77 37 H 106/69 90 10/12/18 06:47 91 Laboratory Results Short CBC 10/12/18 Range/Units 07:15 WBC 13.60 H (4.8-10.8) K/uL Hgb 13.6 (12.0-16.0) g/dL Hct 38.5 (37-47) % Plt Count 264 (130-400) K/uL BMP 10/12/18 07:15 Sodium 139 Potassium 3.9 Chloride 108 H Carbon Dioxide 22 BUN 9 Creatinine 0.62 Glucose 180 H Calcium 9.1 Diagnostic Findings CXR: IMPRESSION: Findings may suggest reactive airways disease or viral bronchiolitis. No focal infiltrate to suggest pneumonia. Supervising Physician Co-Signing Physician Notes Attending Addendum: care coordinated with JERED Moran please refer to her notes for full details, I agree with her notes patient seen and examined, records reviewed by myself as well on exam, patient seen resting in bed, comfortable, not in distress states she feels better compared to admission has occasional cough with clear sputum no fever/chills no chest pain no other symptoms VS noted and reviewed oriented x3, not in distress, speaks in sentences with no effort nor accessory muscle use normal rate, regular rhythm, no murmurs faint wheeze b/l, good air entry non distended, soft, nontender no bipedal edema, erythema, warmth no neuro deficits WBC 13.6 Hg 13.6 Crea 0.62 ASSESSMENT AND PLAN> ACUTE ASTHMA EXACERBATION Solumedrol, Nebs wean off o2 Ceftri + Azithro Pulmonary consulted SMOKER cessation counselling other diagnoses and plan of care as per JERED Moran notes Dionisio Valenzuela MD
--- NOTE | 2018-10-12 09:06 | Emergency Department Note ---
Entered by Alyse Kerr acting as a scribe for History of Present Illness General Chief complaint: Shortness of Breath/Dyspnea Time Seen by Provider: 10/12/18 07:03 Source: patient Mode of arrival: EMS Limitations: no limitations History of Present Illness Provider complaint: asthma exacerbation Onset (ago): hour(s) (this am) Location: chest Pain Consistency: + other (episode) Quality: + other (asthma exacerbation) Associated symptoms: + denies other symptoms, + chest pain (tightness), + cough and + other (rhinorrhea, congestion); no fever/chills and no nausea/vomiting Treatments prior to arrival: other (albuterol, duoneb, solu-medrol) The patient is a 38 year old female with a past medical history of asthma who presents to the ER via EMS with complaints of an episode of asthma exacerbation that began this morning. The patient reports that she has been experiencing rhinorrhea, nasal congestion and a productive cough for a week. She denies being evaluated by her PCP for this. She also denies any fevers, chills, lightheadedness, or urinary symptoms but notes she does have chest tightness. She also denies any GI symptoms such as nausea, vomiting, diarrhea or abdominal pain. She admits to recently becoming an everyday smoker. She reports that she did vape prior to this. Per EMS, the patient was given Solu-Medrol, a DuoNeb and albuterol in route. She denies any previous intubations. Home Medications Home Medications Medication Instructions Recorded Confirmed Type albuterol sulfate 2 puff INHALATION QID 10/12/18 10/12/18 History albuterol sulfate 2.5 mg INHALATION QID PRN 10/12/18 10/12/18 History buprenorphine-naloxone 0.5 tab SUBLINGUAL TID 10/12/18 10/12/18 History loratadine [Claritin] 10 mg PO DAILY PRN 10/12/18 10/12/18 History montelukast 10 mg PO QAM 10/12/18 10/12/18 History Allergies Allergy/AdvReac Type Severity Reaction Status Date / Time No Known Allergies Unverified 10/12/18 07:31 Past Med/Surg History Medical History Psoriasis (Chronic) Syncopal episodes (Resolved) Substance use disorder (Chronic) Tobacco use (Chronic) Asthma (Chronic) Surgical History History of foot surgery (Resolved) 2010 Clacaneal fracture Family History Other Diabetes Lung cancer Social History Preferred Language: Spanish Communication Ability: Effective Beliefs That Will Affect Care: None marital status: Single marital status details: Significant Other Current Living Situation: Significant Other Other Information That Helps Us Care for You: No Feels Safe at Home: Yes Safety Concerns: Feels Safe At This Time Smoking Status: Current every day smoker Tobacco Type: cigarettes Cigarettes Per Day: 1/2 ppd Do You Dip or Chew Tobacco: No Hx Alcohol Use: No Hx Substance Use: Yes Review of Systems See HPI for pertinent positives & negatives. and A total of 10 systems reviewed and were otherwise negative Physical Exam Vital Signs Vital Signs - 24 hr 10/12/18 06:47 10/12/18 07:05 10/12/18 07:07 Temperature Temperature Source Sepsis Recent Fever Within 48 Hours Sepsis New/Unexplained Change in Mental Status Sepsis Action Taken by Nursing Pulse Oximetry Post Tiitration 92 Pulse Rate 77 78 Pulse Rate [Finger] Pulse Rate from SpO2 Sensor 79 77 Pulse Rhythm Pulse Strength Respiratory Rate 37 H 33 H Respiratory Effort / Characteristics Labored Short of Breath Respiratory Depth Shallow Respiratory Pattern Tachypnea Blood Pressure 106/69 Blood Pressure Mean 81 Blood Pressure Position Pulse Oximetry 91 90 91 Oxygen Delivery Method Oxymask Oxygen Flow Rate 6 Fraction of Inspired Oxygen 10/12/18 07:08 10/12/18 07:10 10/12/18 07:13 Temperature 36.4 C L Temperature Source Oral Sepsis Recent Fever Within 48 Hours No Sepsis New/Unexplained Change in Mental Status No Sepsis Action Taken by Nursing No Action Required Pulse Oximetry Post Tiitration Pulse Rate 74 93 H 74 Pulse Rate [Finger] Pulse Rate from SpO2 Sensor 78 Pulse Rhythm Regular Regular Pulse Strength Normal Respiratory Rate 35 H 25 H Respiratory Effort / Characteristics Short of Breath Respiratory Depth Shallow Respiratory Pattern Tachypnea Blood Pressure 106/69 Blood Pressure Mean 81 Blood Pressure Position Sitting Pulse Oximetry 91 92 92 Oxygen Delivery Method Room Air Oxymask Oxygen Flow Rate 6 Fraction of Inspired Oxygen 10/12/18 07:14 10/12/18 07:20 10/12/18 07:30 Temperature Temperature Source Sepsis Recent Fever Within 48 Hours Sepsis New/Unexplained Change in Mental Status Sepsis Action Taken by Nursing Pulse Oximetry Post Tiitration Pulse Rate 77 75 Pulse Rate [Finger] Pulse Rate from SpO2 Sensor 79 77 Pulse Rhythm Pulse Strength Respiratory Rate 37 H 29 H Respiratory Effort / Characteristics Respiratory Depth Respiratory Pattern Blood Pressure Blood Pressure Mean Blood Pressure Position Pulse Oximetry 92 92 Oxygen Delivery Method Oxygen Flow Rate Fraction of Inspired Oxygen 40 10/12/18 07:36 10/12/18 07:40 10/12/18 07:50 Temperature Temperature Source Sepsis Recent Fever Within 48 Hours Sepsis New/Unexplained Change in Mental Status Sepsis Action Taken by Nursing Pulse Oximetry Post Tiitration Pulse Rate 80 81 Pulse Rate [Finger] 76 Pulse Rate from SpO2 Sensor 71 77 Pulse Rhythm Pulse Strength Respiratory Rate 24 27 H 28 H Respiratory Effort / Characteristics Spontaneous Short of Breath Respiratory Depth Respiratory Pattern Blood Pressure Blood Pressure Mean Blood Pressure Position Pulse Oximetry 92 95 96 Oxygen Delivery Method Oxymask Oxygen Flow Rate 6 Fraction of Inspired Oxygen 10/12/18 08:00 10/12/18 08:05 10/12/18 08:10 Temperature Temperature Source Sepsis Recent Fever Within 48 Hours Sepsis New/Unexplained Change in Mental Status Sepsis Action Taken by Nursing Pulse Oximetry Post Tiitration Pulse Rate 86 90 Pulse Rate [Finger] Pulse Rate from SpO2 Sensor 89 90 Pulse Rhythm Pulse Strength Respiratory Rate 28 H 24 Respiratory Effort / Characteristics Spontaneous Short of Breath Respiratory Depth Shallow Respiratory Pattern Irregular Blood Pressure Blood Pressure Mean Blood Pressure Position Pulse Oximetry 96 98 Oxygen Delivery Method Oxymask Oxygen Flow Rate 6 Fraction of Inspired Oxygen 10/12/18 08:20 10/12/18 08:25 Temperature Temperature Source Sepsis Recent Fever Within 48 Hours Sepsis New/Unexplained Change in Mental Status Sepsis Action Taken by Nursing Pulse Oximetry Post Tiitration Pulse Rate 86 85 Pulse Rate [Finger] Pulse Rate from SpO2 Sensor 81 79 Pulse Rhythm Pulse Strength Respiratory Rate 24 22 Respiratory Effort / Characteristics Respiratory Depth Respiratory Pattern Blood Pressure 103/61 Blood Pressure Mean 75 Blood Pressure Position Pulse Oximetry 95 96 Oxygen Delivery Method Oxygen Flow Rate Fraction of Inspired Oxygen GENERAL: Awake, alert, well-appearing, in no acute distress HENT: Normocephalic, atraumatic. Oropharynx unremarkable. EYES: Normal conjunctiva. Sclera non-icteric. NECK: Supple. No nuchal rigidity. FROM. No JVD. RESPIRATORY: Bilateral wheezing throughout all lung mad[place]. Increased work of breathing. CARDIAC: Regular rate, normal rhythm. Extremities warm and well perfused. Pulses equal. ABDOMEN: Soft, non-distended. No tenderness to palpation. No rebound or guarding. No masses. RECTAL: Deferred. MUSCULOSKELETAL: Chest examination reveals no tenderness. The back is symmetrical on inspection without obvious abnormality. There is no CVA tenderness to palpation. No joint edema. LOWER EXTREMITIES: Calves are equal size bilaterally and non-tender. No edema. No discoloration. NEURO: Normal sensorium. No sensory or motor deficits noted. SKIN: No rash or jaundice noted. Course 0708: The resident, Dr. Curran - PGY-3, evaluated the patient. 0719: I did perform an independent evaluation and examination of this patient as described. I also saw this patient in conjunction with the resident, Dr. Curran, and guided management for the patient. 0747: Dr. Curran discussed the patient's case with Taya Holder PA-C - [place] [facility]. She and Dr. Valenzuela will evaluate the patient for further management. 0749: Dr. Curran updated the patient and she is agreeable with the treatment plan. Administered Medications Acetaminophen (Tylenol) 650 mg PO Q4H PRN PRN Reason: Pain or Fever Stop: 11/11/18 09:54 Last Admin: 10/13/18 16:22 Dose: 650 mg Documented by: [id number] Albuterol (Duoneb) 3 ml NEB Q4R PRN PRN Reason: Shortness Of Breath Or Wheezing Stop: 11/11/18 11:59 Last Admin: 10/13/18 19:15 Dose: 3 ml Documented by: [id number] Admin: 10/13/18 16:41 Dose: 3 ml Documented by: [id number] Arformoterol Tartrate (Brovana Neb) 15 mcg INH BIDR [facility] Stop: 11/11/18 19:59 Last Admin: 10/13/18 19:16 Dose: Not Given Documented by: [id number] Admin: 10/13/18 07:06 Dose: 15 mcg Documented by: [id number] Admin: 10/12/18 19:21 Dose: Not Given Documented by: [id number] Buprenorphine/Naloxone (Suboxone 8 Mg/2 Mg) 0.5 tab SL TID [facility] Stop: 11/11/18 10:14 Last Admin: 10/13/18 21:05 Dose: 0.5 tab Documented by: [id number] Admin: 10/13/18 13:41 Dose: 0.5 tab Documented by: [id number] Admin: 10/13/18 09:10 Dose: 0.5 tab Documented by: [id number] Admin: 07/09/19 20:10 Dose: 0.5 tab Documented by: [id number] Admin: 10/12/18 14:26 Dose: 0.5 tab Documented by: [id number] Admin: 10/12/18 11:21 Dose: 0.5 tab Documented by: [id number] Ceftriaxone Sodium 1,000 mg/ (Dextrose) 50 mls @ 100 mls/hr IV Q24H [facility]; Protocol Stop: 10/19/18 15:59 Last Infusion: 10/13/18 16:52 Dose: 0 mls/hr Documented by: [id number] Admin: 10/13/18 16:14 Dose: 100 mls/hr Documented by: [id number] Infusion: 10/12/18 16:07 Dose: 0 mls/hr Documented by: [id number] Admin: 10/12/18 15:37 Dose: 100 mls/hr Documented by: [id number] Azithromycin 500 mg/ Dextrose 255 mls @ 125 mls/hr IV DAILY [facility]; Protocol Stop: 10/19/18 08:59 Last Infusion: 10/13/18 11:15 Dose: 0 mls/hr Documented by: [id number] Admin: 10/13/18 09:12 Dose: 125 mls/hr Documented by: [id number] Ibuprofen (Advil) 200 mg PO Q6H PRN PRN Reason: Mild Pain Stop: 11/12/18 20:53 Last Admin: 10/13/18 21:11 Dose: 200 mg Documented by: [id number] Miscellaneous (Remove Nicoderm Patch) 1 ea N/A HS [facility] Stop: 11/12/18 20:59 Last Admin: 10/13/18 20:50 Dose: Not Given Documented by: [id number] Montelukast Sodium (Singulair) 10 mg PO QAM [facility] Stop: 11/11/18 10:14 Last Admin: 10/13/18 09:12 Dose: 10 mg Documented by: [id number] Admin: 10/12/18 11:24 Dose: 10 mg Documented by: [id number] Nicotine (Nicoderm Cq) 7 mg TD QAM [facility] Stop: 11/12/18 17:14 Last Admin: 10/13/18 18:35 Dose: Not Given Documented by: [id number] Prednisone (Prednisone) 40 mg PO DAILY [facility] Stop: 11/12/18 12:44 Last Admin: 10/13/18 13:38 Dose: 40 mg Documented by: [id number] Discontinued Medications Albuterol (Duoneb) 12 ml NEB ONE ONE Stop: 10/12/18 07:10 Last Admin: 10/12/18 07:34 Dose: 12 ml Documented by: [id number] Albuterol (Duoneb) 3 ml NEB Q4R [facility] Stop: 11/11/18 11:59 Last Admin: 10/13/18 11:12 Dose: 3 ml Documented by: [id number] Admin: 10/13/18 08:13 Dose: 3 ml Documented by: [id number] Admin: 10/13/18 03:27 Dose: 3 ml Documented by: [id number] Admin: 10/12/18 23:06 Dose: 3 ml Documented by: [id number] Admin: 10/12/18 19:19 Dose: 3 ml Documented by: [id number] Admin: 10/12/18 15:21 Dose: 3 ml Documented by: [id number] Admin: 10/12/18 11:13 Dose: 3 ml Documented by: [id number] Azithromycin (Zithromax) 500 mg PO NOW ONE Stop: 10/12/18 07:17 Last Admin: 10/12/18 07:30 Dose: 500 mg Documented by: [id number] Sodium Chloride (Nss 1000ml) 1,000 mls @ 999 mls/hr IV .Q1H1M ONE Stop: 10/12/18 08:23 Last Infusion: 10/12/18 11:04 Dose: 0 mls/hr Documented by: [id number] Admin: 10/12/18 07:30 Dose: 999 mls/hr Documented by: [id number] Sodium Chloride (Nss 1000ml) 1,000 mls @ 999 mls/hr IV .Q1H1M ONE Stop: 10/12/18 10:29 Last Infusion: 10/12/18 13:04 Dose: 0 mls/hr Documented by: [id number] Admin: 10/12/18 11:21 Dose: 999 mls/hr Documented by: [id number] Methylprednisolone 60 mg/ (Syringe) 0.96 mls @ 1.5 mls/min IV Q6H [facility] Stop: 11/11/18 09:59 Last Admin: 10/13/18 09:12 Dose: 1.5 mls/min Documented by: [id number] Admin: 10/13/18 05:07 Dose: 1.5 mls/min Documented by: [id number] Admin: 10/12/18 20:11 Dose: 1.5 mls/min Documented by: [id number] Admin: 10/12/18 15:38 Dose: 1.5 mls/min Documented by: [id number] Admin: 10/12/18 11:22 Dose: 1.5 mls/min Documented by: [id number] Sodium Chloride (Nss 1000ml) 1,000 mls @ 125 mls/hr IV .Q8H [facility] Stop: 10/13/18 10:14 Last Infusion: 10/13/18 07:15 Dose: 0 mls/hr Documented by: [id number] Admin: 10/13/18 05:58 Dose: 125 mls/hr Documented by: [id number] Infusion: 10/13/18 05:58 Dose: 125 mls/hr Documented by: [id number] Admin: 10/12/18 22:04 Dose: 125 mls/hr Documented by: [id number] Infusion: 10/12/18 21:05 Dose: 125 mls/hr Documented by: [id number] Admin: 10/12/18 13:05 Dose: 125 mls/hr Documented by: [id number] Magnesium Sulfate/Dextrose (Magnesium Sulfate / D5w) 2 gm IV NOW STA Stop: 10/12/18 07:17 Last Admin: 10/12/18 07:20 Dose: 2 gm Documented by: [id number] Methylprednisolone (Solumedrol) 125 mg IV NOW STA Stop: 10/12/18 07:54 Last Admin: 10/12/18 09:08 Dose: Not Given Documented by: [id number] Medical Decision Making Differential Diagnosis Differential diagnosis includes: pneumonia, bronchitis, COPD exacerbation, asthma exacerbation, pneumothorax, PE, CHF, and acute coronary syndrome amongst others. Medical Records Attestation: I reviewed the patient's medical records. The patient was admitted in July 2017 for exacerbation of asthma. Home Medications Current Medication List: was personally reviewed by me Laboratory Data Attestation: I reviewed the patient's lab results. Result diagrams: 10/13/18 05:45 10/13/18 05:45 Lab Results 10/12/18 10/12/18 10/12/18 Range/Units 07:15 07:15 07:45 WBC 13.60 H (4.8-10.8) K/uL RBC 4.28 (4.2-5.4) M/uL Hgb 13.6 (12.0-16.0) g/dL Hct 38.5 (37-47) % MCV 90.0 (80-100) fL MCH 31.8 (25-34) pg MCHC 35.3 (32-36) g/dL RDW Std Deviation 40.7 (36.4-46.3) fL RDW Coeff of Carmen 12.6 (11.5-14.5) % Plt Count 264 (130-400) K/uL MPV 9.6 (7.4-10.4) fL Immature Gran % (Auto) 0.1 % Neut % (Auto) 79.8 % Lymph % (Auto) 12.8 % Petroleum % (Auto) 5.4 % Eos % (Auto) 1.8 % Baso % (Auto) 0.1 % Immature Gran # (Auto) 0.02 (0.00-0.02) K/uL Neut # (Auto) 10.84 H (1.4-6.5) K/uL Lymph # (Auto) 1.74 (1.2-3.4) K/uL Petroleum # (Auto) 0.74 H (0.11-0.59) K/uL Eos # (Auto) 0.24 (0-0.5) K/uL Baso # (Auto) 0.02 (0-0.2) K/uL VBG pH 7.38 (7.36-7.41) VBG pCO2 39 (38-50) mmHg VBG pO2 32 mmHg VBG HCO3 23 mmol/L VBG O2 Saturation 61.4 % VBG Base Excess -1.9 mEq/L Barometric Pressure 734.6 mm/Hg Sodium 139 (136-145) mmol/L Potassium 3.9 (3.5-5.1) mmol/L Chloride 108 H (98-107) mmol/L Carbon Dioxide 22 (21-32) mmol/L Anion Gap 10.0 (3-11) BUN 9 (7-18) mg/dl Creatinine 0.62 (0.6-1.2) mg/dl Est Cr Clr Drug Dosing 92.8 ml/min Est GFR ( Amer) 132.6 Est GFR (Non-Af Amer) 114.4 BUN/Creatinine Ratio 14.9 (10-20) Glucose 180 H (70-99) mg/dl Calcium 9.1 (8.5-10.1) mg/dl Imaging Data Radiologist's Impression: Radiology results as stated below per my review and t he radiologist's interpretation: XR chest 1V portable CLINICAL HISTORY: 38 years-old Female presenting with dyspnea. TECHNIQUE: Portable upright AP view of the chest was obtained. COMPARISON: 07/03/2017. FINDINGS: Cardiomediastinal silhouette normal. Coarsened lung markings with vague added perihilar density and possible mild bronchial wall thickening. No other focal opacity. No large effusion or pneumothorax. Osseous structures normal. Upper abdomen normal. IMPRESSION: Findings may suggest reactive airways disease or viral bronchiolitis. No focal infiltrate to suggest pneumonia. Electronically signed by: Mac Gomez M.D. 10/12/2018 7:35 AM ECG Data Attestation: I personally reviewed and interpreted this ECG as follows: Indication: SOB/dyspnea Rate (beats per minute): 76 Rhythm: normal sinus Findings: + other (left atrial enlargement); no ST depression and no ST elevation Blood Pressure Blood Pressure Findings: Normal blood pressure Blood Pressure Disposition: did not require urgent referral MDM Narrative This patient was primarily seen by the resident. She is a 38-year-old female with a history of asthma who presents the emergency department complaining of asthma exacerbation. In route to the emergency department patient received 3 albuterol breathing treatments as well as Solu-Medrol. Here in the emergency department the patient received an additional hour-long breathing treatment as well as magnesium. I attempted to place the patient on BiPAP however the patient did not tolerate it. A blood gas was obtained. Patient did receive a normal saline bolus. She was also started on azithromycin. Due to the patient's respiratory rate I did discuss the case with the hospitalist service who agreed to admit the patient. Patient and family were in agreement with the treatment plan. Impression & Plan Asthma exacerbation Critical Care Time Critical Care Time: Yes Total Critical Care Time: 30 I have personally spent 30 minutes of critical care time in the direct management of this patient. This includes bedside care, interpretation of diagnostic studies, and testing, discussion with consultants, patient, and family members, and other required patient management activities. These 30 minutes are in excess of all separately billable procedures. Discharge Plan Visit Data *Final* Discharge Date/Time: 10/12/18 09:34 Chief Complaint: Shortness of Breath/Dyspnea ED Provider: Axel Tian ED Midlevel Provider: Enid Curran Discharge Problem: Asthma exacerbation Patient Disposition: Admitted As Inpatient Condition: Good Discharge Instructions Interventions: ED Discharge Assessment Last Done: 10/12/18 09:34 The scribe's documentation has been prepared under my direction and personally reviewed by me in its entirety. I confirm that the note above accurately reflects all work, treatment, procedures, and medical decision making performed by me.
[2018-10-12 09:32] LABS: Base Excess ABG -2.1 mEq/L (-9-1.8); HCO3 ABG 21 mmol/L (19-24); Oxygen Saturation ABG 92.4 % (90-95); PCO2 ABG 30 mmHg (35-46); PO2 ABG 63 mm/Hg (80-95); pH ABG 7.45 (7.35-7.45)
[2018-10-12 09:34] LABS: Allen Test Pos (Pos)
[2018-10-12] MEDS ORDERED: ACETAMINOPHEN 325 MG TAB PO PRN (09:55)
[2018-10-12] MEDS: ALBUT/IPRATROP 3MG/0.5MG NEB 3 ML VIAL NEB SCH ×4 (11:13→23:06)
[2018-10-12] MEDS: BUPRENORPHINE/NALOXONE 8/2 MG TAB SL SCH ×3 (11:21→20:10)
[2018-10-12] MEDS: methylPREDNISolone 60 MG in SYRINGE 0 ML IV SCH ×3 (11:22→20:11)
[2018-10-12] MEDS: MONTELUKAST SODIUM 10 MG TABLET PO SCH (11:24)
[2018-10-12] MEDS: SODIUM CHLORIDE 0.9% 1000ML 1,000 ML IV SCH ×2 (13:05→22:04)
[2018-10-12] MEDS ORDERED: AZITHROMYCIN 500 MG in DEXTROSE 5% 250 ML IV ONE (15:04)
[2018-10-12] MEDS: cefTRIAXone SODIUM 1,000 MG in DEXTROSE 5% 50 ML IV SCH (15:37)
[2018-10-12] MEDS: ARFORMOTEROL TART 15MCG/2ML VIAL INH SCH (19:21)
--- NOTE | 2018-10-12 23:10 | Consultation Report ---
DATE OF CONSULTATION: 10/12/2018 REASON FOR CONSULTATION: Asthma exacerbation. HISTORY OF PRESENT ILLNESS: A 38-year-old single white female with a history of asthma since her youth/adolescence was admitted today onto the hospitalist service because of severe dyspnea. She states she has been sick for about a week with progressive air hunger and cough associated with severe fatigue and respiratory embarrassment. She has a nebulizer with albuterol solution at home and took 3 treatments without efficacy and used her rescue inhaler and was brought by EMS to the ER markedly desaturated. She does smoke less than a pack of cigarettes a day, and had tried to quit in the past starting in her teen years. 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 Her symptoms appear to be seasonal worse in the spring and fall. She has 3 dogs at home with a new puppy that is long haired. No cats. No significant travel history. No significant mouldy or mildewed areas in the house. Over the past week her dyspnea has become so problematic that carrying the wash up the stairs or walking up a grade prompt her to have to dominguez her activity to catch her breath. No pleuritic pain. She has been trying vaping in order to quit smoking. She also has a history of substance abuse and has been on Suboxone. She states her smoking is precipitated by a great deal of stress. She has not seen an national sales director or dehydrator in the past. For details of past medical history, medications, family and social history, I refer you to current and past record. She has no children, but has significant other. PHYSICAL EXAMINATION: GENERAL: This is a well-developed, well-nourished white female appearing mildly dyspneic at rest but improved from this morning (according to her history). VITAL SIGNS: Blood pressure 92/66, pulse 87 and regular, respiratory rate 20, temperature 37, O2 sat 98% on 2 liters. SKIN: Without lesion. HEENT: Atraumatic, normocephalic. PERRLA, EOMI. Conjunctivae pink. Sclerae nonicteric. Fundi poorly visualized. NECK: Neck veins are not distended at 45 degrees. No lymphadenopathy in the supra or infraclavicular areas. Pharyngeal exam intact (patient has been tried on QVAR in the past but develops oral thrush). LUNGS: Coarse wheezes and rhonchi diffusely. CARDIAC EXAM: Regular rhythm. No murmurs or gallops. PMI nondisplaced. ABDOMEN: Soft, scaphoid. No evidence for hepatosplenomegaly. EXTREMITIES: No pedal edema, clubbing or cyanosis. NEUROLOGIC: Intact. No lateralizing signs. LABORATORY DATA: White count 13,600, H and H 13.6 and 38.5, 1.8% eosinophilia, but 6.6% eosinophilia in 06/2017. Preponderance of polymorphonuclear leukocytes seen. PT/INR within normal limits. D-dimer was not done. ABGs pH 7.45, pCO2 30, pO2 63 on 6 liters in the ER. PRP within normal limits. Glucose 180. Chest x-ray, vague perihilar density suggestive of mild bronchial wall thickening, perhaps suggesting bronchiolitis. EKG shows normal sinus rhythm without any acute changes. OVERALL ASSESSMENT: A 38-year-old asthmatic, history of substance abuse disorder and chronic smoking history with presentations of acute and chronic asthmatic bronchitis with an extrinsic component to her asthma historically. The patient seems clinically improved from earlier today according to her history and would continue on IV methylprednisolone at current dose along with p.o. Singulair and aerosolized bronchodilator along with IV antibiotics. We will order additional serologies and follow during this hospital stay with you. The patient will require full evaluation as an outpatient including pulmonary function studies and in my opinion Allergy and Immunology evaluation as well.Smoking cessation is imperative. MTDD
[2018-10-13] MEDS: ALBUT/IPRATROP 3MG/0.5MG NEB 3 ML VIAL NEB SCH ×3 (03:27→11:12)
[2018-10-13] MEDS: methylPREDNISolone 60 MG in SYRINGE 0 ML IV SCH ×2 (05:07→09:12)
[2018-10-13] MEDS: SODIUM CHLORIDE 0.9% 1000ML 1,000 ML IV SCH (05:58)
[2018-10-13 06:16] LABS: Hematocrit (blood only) 33.6 % (37-47); Hemoglobin 11.7 g/dL (12.0-16.0); Immature Granulocytes # (auto) 0.04 K/uL (0.00-0.02); Immature Granulocytes % (auto) 0.3 %; Lymphocytes # (auto) 0.78 K/uL (1.2-3.4); Lymphocytes % (auto) 5.2 %; Mean Corpuscular Hgb Conc 34.8 g/dL (32-36); Mean Corpuscular Volume 92.1 fL (80-100); Mean Platelet Volume 9.7 fL (7.4-10.4); Monocytes # (auto) 0.45 K/uL (0.11-0.59); Neutrophils # (auto) 13.83 K/uL (1.4-6.5); Neutrophils % (auto) 91.5 %; Platelet Count 239 K/uL (130-400); RDW Coefficient of Variation 12.9 % (11.5-14.5); RDW Standard Deviation 43.5 fL (36.4-46.3); Red Blood Count 3.65 M/uL (4.2-5.4)
[2018-10-13 06:41] LABS: BUN Creatinine Ratio 16.3 (10-20); Calcium 8.5 mg/dl (8.5-10.1); Creatinine Clr Calc Pharmacy 125.1 ml/min; Est GFR (African American) 146.3; Est GFR (Non-African American) 126.2
[2018-10-13] MEDS: ARFORMOTEROL TART 15MCG/2ML VIAL INH SCH ×2 (07:06→19:16)
[2018-10-13 07:28] LABS: Estimated Average Glucose 114 mg/dl; Hemoglobin A1C 5.6 % (4.5-5.6)
[2018-10-13] MEDS: BUPRENORPHINE/NALOXONE 8/2 MG TAB SL SCH ×3 (09:10→21:05)
[2018-10-13] MEDS: AZITHROMYCIN 500 MG in DEXTROSE 5% 250 ML IV SCH (09:12)
[2018-10-13] MEDS: MONTELUKAST SODIUM 10 MG TABLET PO SCH (09:12)
[2018-10-13] MEDS: predniSONE 20 MG TAB PO SCH (13:38)
--- NOTE | 2018-10-13 14:54 | Progress Note ---
DATE: 10/13/2018 PULMONARY MEDICINE PROGRESS NOTE Chart reviewed, the patient examined. SUBJECTIVE: Much improved today. Tolerating nebulizer treatments that include Brovana b.i.d. and her aerosolized bronchodilator, short-acting beta agonist every 4 hours as needed. She is tolerating the steroids with minimal tremulousness and feels much less dyspnea and air hunger today. OBJECTIVE: CURRENT VITAL SIGNS: Blood pressure 98/48, pulse 97 and regular, respiratory rate 18, temperature 36.7, O2 sat 96% on room air. SKIN: Without lesion. HEENT: Atraumatic, normocephalic. PERRLA. LUNGS: Scattered wheeze. Distant P and A with improved aeration at the bases. CARDIAC: Regular rate and rhythm. I do not appreciate a gallop. ABDOMEN: Soft, scaphoid. EXTREMITIES: No pedal edema, clubbing or cyanosis. NEUROLOGICAL: Intact. No lateralizing signs. LABORATORY DATA: Today, white count 15,000, H and H 11.7 and 33.6. The rest of her chemistry is unremarkable. IgE level pending. Other serologies pending. ASSESSMENT: A 38-year-old with history of asthma and chronic smoking history with a bout of acute asthmatic bronchitis that is slowly resolving, presenting in status asthmaticus. Would slowly taper steroids, maintain for another 24-48 hours. IV antibiotics with conversion to oral and possible discharge within that same timeframe if the patient's peak flows and clinical improvement continued. The patient warranted once again about smoking and the need for smoking cessation. We will need to see as an outpatient and will set her up for an allergy and immunology evaluation as well given the seasonal nature of her symptoms.
[2018-10-13] MEDS: cefTRIAXone SODIUM 1,000 MG in DEXTROSE 5% 50 ML IV SCH (16:14)
[2018-10-13] MEDS: ALBUT/IPRATROP 3MG/0.5MG NEB 3 ML VIAL NEB PRN ×2 (16:41→19:15)
--- NOTE | 2018-10-13 16:58 | Hospitalist Progress Note ---
Date of Service October 13, 2018 Assessment & Plan (1) Asthma exacerbation: "Pt with hx asthma on prn albuterol only presented with severe SOB and wheezing worsened this morning. One week ago started with non-productive cough, congestion. No fever/chills. Upon EMS arrival reported pt's O2 sats in 80's. She had 1 duoneb and 3 albuterol neb treatments, Solumedrol 125mg IV en route. Was on 6L oxymask in ER with O2 sats of 91% and tachypnea 35. In ER pt given magnesium sulfate 2GM IV, hour long albuterol neb with some improvement of respiratory status with RR: 24, 94% on 6L oxymask, P: 86. Bipap was attempted however pt reports did not tolerate. WBC: 13, CXR: reactive airways disease or viral bronchiolitis. No focal infiltrate to suggest pneumonia." -presentation on 10/12/18 and patient started on scheduled solumedrol 60 mg IV q6 hoursand scheduled nebulizer treatments q4 hours, pulmonary service started patient on ceftriaxone 1 gram daily -as of 10/13/18, patient is on room air, solumedrol is de-escalated to oral prednisone 40 mg daily, scheduled nebulizer q4 hours is changed to prn, continue ceftriaxone now -Continue Singulair -Pulmonology consult has recommended smoking cessation; outpatient pulmonary function studies and outpatient Allergy and Immunology evaluation as well -will continue to monitor patient inpatient at this time (2) Tobacco use: -Smoking cessation encouraged. Also discussed avoiding vaping -offer nicotine patch (3) Substance use disorder: Follows with [facility] in [place]. Last Rx filled on 10/01/18 for 14 day supply. -Continue Suboxone (4) Hyperglycemia: -HbA1c 5.6 -initial glucose 180 on labs; elevated glucose likely due to steroid use -expect blood glucose to be better with less steroids DVT Prophylaxis -SCDs Subjective Patient is breathing on room air. She had a prn breathing treatment just before the late afternoon exam. Some rhonchi on exam. Patient denies acute shortness of breath in general today. no chest pain. no abdomen pain. no vomiting. no lightheadedness. no dizziness Physical Exam Constitutional: comfortable Eyes: PERRL, conjunctivae normal, anicteric sclerae EOM intact bilaterally ENMT: external ear and nose normal, oropharynx normal Neck: trachea midline, no thyromegaly normal visual inspection Respiratory: Auscultation: + rhonchi Cardiovascular: RRR, no murmur, no edema Gastrointestinal (Abdomen): normal bowel sounds, soft, nontender, no hepatosplenomegaly Musculoskeletal: no cyanosis or clubbing, extremities motor strength 5/5 Head/Neck/Chest: normocephalic and head atraumatic Neurologic: PERRL, EOMI, accommodation nl, no face palsy, no dysarthria CN's II-XI intact bilaterally Psychiatric: A+Ox3, euthymic affect Results & Data Vital Signs (Past 12 Hours) Vital Signs Temp Pulse Pulse Resp BP Pulse Ox 10/13/18 16:41 81 16 98 10/13/18 15:08 36.5 C 81 18 105/69 97 10/13/18 11:43 36.7 C 97 H 18 98/48 L 96 10/13/18 11:12 86 18 97 10/13/18 08:13 88 18 95 10/13/18 07:45 87 10/13/18 07:11 36.7 C 88 16 103/64 94 10/13/18 07:07 95 H 18 92
[2018-10-13] MEDS: NICOTINE 7 MG/24 HR TDSY TD SCH (18:35)
[2018-10-13] MEDS ORDERED: IBUPROFEN 200 MG TAB PO PRN (20:54)
[2018-10-14] MEDS: ALBUT/IPRATROP 3MG/0.5MG NEB 3 ML VIAL NEB PRN (07:10)
[2018-10-14] MEDS: ARFORMOTEROL TART 15MCG/2ML VIAL INH SCH (07:11)
[2018-10-14] MEDS: BUPRENORPHINE/NALOXONE 8/2 MG TAB SL SCH (08:37)
[2018-10-14] MEDS: MONTELUKAST SODIUM 10 MG TABLET PO SCH (08:38)
[2018-10-14] MEDS: predniSONE 20 MG TAB PO SCH (08:39)
[2018-10-14] MEDS: NICOTINE 7 MG/24 HR TDSY TD SCH (08:39)
[2018-10-14] MEDS: AZITHROMYCIN 500 MG in DEXTROSE 5% 250 ML IV SCH (08:44)
[2018-10-14] MEDS ORDERED: ALBUTEROL 0.5% NEB SOLN 2.5 MG/0.5 ML VIAL NEB PRN (12:02)
--- NOTE | 2018-10-14 12:05 | Hospitalist Progress Note ---
Date of Service October 14, 2018 Assessment & Plan (1) Asthma exacerbation: "Pt with hx asthma on prn albuterol only presented with severe SOB and wheezing worsened this morning. One week ago started with non-productive cough, congestion. No fever/chills. Upon EMS arrival reported pt's O2 sats in 80's. She had 1 duoneb and 3 albuterol neb treatments, Solumedrol 125mg IV en route. Was on 6L oxymask in ER with O2 sats of 91% and tachypnea 35. In ER pt given magnesium sulfate 2GM IV, hour long albuterol neb with some improvement of respiratory status with RR: 24, 94% on 6L oxymask, P: 86. Bipap was attempted however pt reports did not tolerate. WBC: 13, CXR: reactive airways disease or viral bronchiolitis. No focal infiltrate to suggest pneumonia." -presentation on 10/12/18 and patient started on scheduled solumedrol 60 mg IV q6 hoursand scheduled nebulizer treatments q4 hours, pulmonary service started patient on ceftriaxone 1 gram daily and azithromycin on 10/12/18 -as of 10/13/18, patient is on room air and on home dose montelukast, solumedrol is de-escalated to oral prednisone 40 mg daily, scheduled nebulizer q4 hours is changed to prn, continue ceftriaxone and azithromycin -10/14/18 discharge instructions: Discharge medications sent to [facility] at [address] [place] [address] Patient should take respiratory antibiotics of amoxicillin/clavulanate twice a day for 5 days and azithromycin daily for 5 days Patient should take prednisone 40 mg daily (start prescription on 10/15/18) and then stop outpatient albuterol nebulizers renewed Patient should take nicotine patch instead of smoking tobacco Patient has follow up appointment 10/18/2018 1:00 PM Provider Melita Baptiste DO Department [facility] Pulmonology consult has recommended smoking cessation; outpatient pulmonary function studies and outpatient Allergy and Immunology evaluation as well Outpatient pulmonary function testing and Allergy clinic referrals can be made by primary care doctor Primary care doctor can follow up with 10/12/18 serum IgE levels, galactomannan, and serum Aspergillus markers (2) Tobacco use: -Smoking cessation encouraged. Also discussed avoiding vaping -nicotine patch and prescriptions offered (3) Substance use disorder: Follows with [facility] in [place]. Last Rx filled on 10/01/18 for 14 day supply. -Continue Suboxone (4) Hyperglycemia: -HbA1c 5.6 -initial glucose 180 on labs; elevated glucose likely due to steroid use -expect blood glucose to be better with less steroids and when steroids are stopped when outpatient DVT Prophylaxis -SCDs ordered for while in the hospital Exacerbation of Asthma, Tobacco Use (smoker) Subjective Patient breathing on room air. Lungs sound clear today. feels better.ready to go home. no pain. no vomiting. no lightheadedness. no dizziness. Physical Exam Constitutional: comfortable Eyes: PERRL, conjunctivae normal, anicteric sclerae EOM intact bilaterally ENMT: external ear and nose normal, oropharynx normal Neck: trachea midline, no thyromegaly normal visual inspection Respiratory: normal respiratory effort, lungs clear to auscultation Cardiovascular: RRR, no murmur, no edema Gastrointestinal (Abdomen): normal bowel sounds, soft, nontender, no hepatosplenomegaly Musculoskeletal: no cyanosis or clubbing, extremities motor strength 5/5 Head/Neck/Chest: normocephalic and head atraumatic Neurologic: PERRL, EOMI, accommodation nl, no face palsy, no dysarthria CN's II-XI intact bilaterally Psychiatric: A+Ox3, euthymic affect Results & Data Vital Signs (Past 12 Hours) Vital Signs Temp Pulse Resp BP Pulse Ox 10/14/18 11:10 36.6 C 70 18 105/72 95 10/14/18 07:15 36.3 C L 86 20 108/54 L 99 10/14/18 07:11 69 18 98 10/14/18 03:30 36.8 C 76 16 112/62 96
--- NOTE | 2018-10-14 12:11 | Discharge Summary ---
Date of Service October 14, 2018 Admission HPI Per Admitting Provider PT is 38 y/o F with PMH asthma, tobacco use, substance use on suboxone presented to ER with c/o SOB. Pt states one week ago started with non-productive cough and congestion. Had increased SOB and wheezing and had been using her albuterol nebulizer 5-6 times a day past couple of days with short term relief of SOB. This morning had severe worsening SOB and presented to ER via EMS. En route had 1 duoneb & 3 albuterol nebulizer treatments, Solumedrol 125mg IV and was on 6L oxymask in ER with O2 sats of 91% and tachypnea. Pt admits to resuming smoking and currently smoking 1/2 ppd. She is also around cleaning chemicals at work. Pt states typically uses her albuterol inhaler a couple of times a week for SOB/wheezing. Triggers: URIs, allergies, chemicals, perfumes, exercise, vaping/smoking, humidity. Is not on inhaled steroids. Last asthma exacerbation 07/2018 and improved with IM and oral steroids and increased albuterol neb use. Last hospitalization for asthma exacerbation 06/2017. Has not required intubation in past. Denies fever/chills, diaphoresis, N/V/D/C, GABRIEL, dizziness, syncope, vision changes, neck pain, CP, orthopnea, palpitations, hemoptysis, sore throat, choking, otalgia, abdominal pain, paresthesias, weakness, extremity edema, rashes, urinary symptoms. Denies ill contacts. Denies other substance use. Admission Exam Per Admitting Provider General: mild respiratory distress, WDWN, appears tired Head: normocephalic, atraumatic Eyes: PERRL, EOM's intact, conjunctiva non-injected, anicteric ENT: normal inspection external ears, nose, mucous membranes dry Neck: supple, trachea midline Lungs: Currently on albuterol neb treatment with sats 96% and RR: 24, +diffuse wheezing, coarse breath sounds CV: RRR, no murmur, no pretibial edema Abd: normal BS, soft, non-tender Ext: no cyanosis, no calf tenderness Neuro: A&O x 3, no focal deficits noted, normal affect Skin: warm, dry Principal Diagnosis Exacerbation of Asthma, Tobacco Use (smoker) Discharge Data Allergies Allergy/AdvReac Type Severity Reaction Status Date / Time No Known Allergies Unverified 10/12/18 07:31 Consultations 10/12/18 07:51 ED Decision to Admit Stat 10/12/18 09:55 Consult Pulmonology Routine Hospital Course (1) Asthma exacerbation: "Pt with hx asthma on prn albuterol only presented with severe SOB and wheezing worsened this morning. One week ago started with non-productive cough, congestion. No fever/chills. Upon EMS arrival reported pt's O2 sats in 80's. She had 1 duoneb and 3 albuterol neb treatments, Solumedrol 125mg IV en route. Was on 6L oxymask in ER with O2 sats of 91% and tachypnea 35. In ER pt given magnesium sulfate 2GM IV, hour long albuterol neb with some improvement of respiratory status with RR: 24, 94% on 6L oxymask, P: 86. Bipap was attempted however pt reports did not tolerate. WBC: 13, CXR: reactive airways disease or viral bronchiolitis. No focal infiltrate to suggest pneumonia." -presentation on 10/12/18 and patient started on scheduled solumedrol 60 mg IV q6 hoursand scheduled nebulizer treatments q4 hours, pulmonary service started patient on ceftriaxone 1 gram daily and azithromycin on 10/12/18 -as of 10/13/18, patient is on room air and on home dose montelukast, solumedrol is de-escalated to oral prednisone 40 mg daily, scheduled nebulizer q4 hours is changed to prn, continue ceftriaxone and azithromycin -10/14/18 discharge instructions: Discharge medications sent to [facility] at [address] [place] [id number] Patient should take respiratory antibiotics of amoxicillin/clavulanate twice a day for 5 days and azithromycin daily for 5 days Patient should take prednisone 40 mg daily (start prescription on 10/15/18) and then stop outpatient albuterol nebulizers renewed Patient should take nicotine patch instead of smoking tobacco Patient has follow up appointment 10/18/2018 1:00 PM Provider Melita Baptiste DO Department [facility] Pulmonology consult has recommended smoking cessation; outpatient pulmonary function studies and outpatient Allergy and Immunology evaluation as well Outpatient pulmonary function testing and Allergy clinic referrals can be made by primary care doctor Primary care doctor can follow up with 10/12/18 serum IgE levels, galactomannan, and serum Aspergillus markers (2) Tobacco use: -Smoking cessation encouraged. Also discussed avoiding vaping -nicotine patch and prescriptions offered (3) Substance use disorder: Follows with [facility] in [place]. Last Rx filled on 10/01/18 for 14 day supply. -Continue Suboxone (4) Hyperglycemia: -HbA1c 5.6 -initial glucose 180 on labs; elevated glucose likely due to steroid use -expect blood glucose to be better with less steroids and when steroids are stopped when outpatient DVT Prophylaxis -SCDs ordered for while in the hospital Exacerbation of Asthma, Tobacco Use (smoker) Total Time Total Time Spent Total Time Spent (In Minutes): 40 minutes Total Time Includes: Examination of the Patient, Discharge Planning, Medication Reconciliation and Communication With Other Providers Discharge Plan Discharge Items Patient Disposition: Home - Self-Care Reason For Visit: ASTHMA EXACERBATION Discharge Diagnosis: Exacerbation of Asthma, Tobacco Use (smoker) Condition: Good Discharge Goals: Improve disease control Activity: Resume your previous activity Non-emergency contact: Primary Care Provider Call non-emergency contact if: you have any medication questions Follow-up/Referrals: Melita Baptiste DO [Primary Care Provider] - Diet: Regular Addtl Provider Instructions: Discharge medications sent to [facility] at [address] [place] [address] Patient should take respiratory antibiotics of amoxicillin/clavulanate twice a day for 5 days and azithromycin daily for 5 days Patient should take prednisone 40 mg daily (start prescription on 10/15/18) and then stop outpatient albuterol nebulizers renewed Patient should take nicotine patch instead of smoking tobacco Patient has follow up appointment 10/18/2018 1:00 PM Provider Melita Baptiste DO Department [facility] Pulmonology consult has recommended smoking cessation; outpatient pulmonary function studies and outpatient Allergy and Immunology evaluation as well Outpatient pulmonary function testing and Allergy clinic referrals can be made by primary care doctor Primary care doctor can follow up with 10/12/18 serum IgE levels, galactomannan, and serum Aspergillus markers Prescriptions: New azithromycin [Zithromax] 250 mg Tablet 250 mg PO QAM 5 Days Qty: 5 RF: 0 prednisone 20 mg Tablet 40 mg PO DAILY 3 Days Qty: 6 RF: 0 amoxicillin-pot clavulanate 875-125 mg Tablet 1 tab PO BIDM 5 Days Qty: 10 RF: 0 nicotine 7 mg/24 hr Patch 24 Hour 7 mg transdermal QAM 30 Days Qty: 30 RF: 0 albuterol sulfate 2.5 mg/0.5 mL Solution For Nebulization 2.5 mg NEB Q6R PRN (Reason: shortness of breath or wheezing) 30 Days Qty: 90 RF: 0 Continued montelukast 10 mg tablet 10 mg PO QAM RF: 0 albuterol sulfate 90 mcg/actuation HFA aerosol inhaler 2 puff inhalation QID RF: 0 loratadine [Claritin] 10 mg Tablet 10 mg PO DAILY PRN (Reason: Allergy Symptoms) RF: 0 buprenorphine-naloxone 8-2 mg tablet, sublingual 0.5 tab sublingual TID RF: 0 Discontinued albuterol sulfate 2.5 mg /3 mL (0.083 %) Solution For Nebulization 2.5 mg INHALATION QID PRN (Reason: Shortness Of Breath Or Wheezing) RF: 0 Stand-Alone Forms: [facility] Discharge Orders: Discharge Order (Routine); Ordered 10/14/18 Ordered By: Anson West Admission Data Admit Date/Time: 10/12/18 08:33 Attending Provider: Anson West Admit Provider: Dionisio Valenzuela Primary Care Provider: Melita Baptiste Other Providers: Dionisio Valenzuela ; Tang Molina Service: Telemetry
[2018-10-14] MEDS ORDERED: AMOXICILLIN/CLAVULANATE 875 MG TAB PO SCH (17:00)
[2018-10-15] MEDS ORDERED: AZITHROMYCIN 250 MG TAB PO SCH (09:00)
[2018-10-20 18:39] LABS: Aspergillus Ag Index 0.05 (<0.50); Aspergillus Antigen, Serum Not Detected (Not Detected); Aspergillus Flavus Negative (Negative); Aspergillus Niger Negative (Negative); Fungitell (1-3)-B-D-Glucan 65 pg/mL; Immunoglobulin IgE 80 KU/L (<115)
== END 2018-10-14 12:47 | disposition home or self-care (01) | DRG 203 ==
LOC: ED 06:58 → SUATTDRO 08:33 → 2E 08:33

== ENCOUNTER 2022-09-26 17:16 | Inpatient (IN) ==
[2022-09-26] MEDS ORDERED: ONDANSETRON INJ 2 MG/ML 2 ML VIAL IV STA (18:55)
[2022-09-26] MEDS ORDERED: SODIUM CHLORIDE 0.9% 1000ML 1,000 ML IV ONE (18:55)
[2022-09-26] MEDS ORDERED: KETOROLAC 30 MG/ML VIAL IV STA (18:55)
--- NOTE | 2022-09-26 19:00 | Emergency Department Note ---
Impression & Plan Anemia, Abdominal pain ED Provider Note INFORMANT: Patient ED PROVIDER(S): Axel Taveras DO CHIEF COMPLAINT: Right flank and right lower quadrant abdominal pain PLAN: Disposition: Admission Outpatient prescription management: [none] Discussion with: I spoke with the hospitalist, who will see the patient for admission/observation and further evaluation and consultation. MEDICAL DECISION MAKING: This is a 42-year-old female who presents to the ED with a chief complaint of right lower quadrant abdominal pain. The patient states that her symptoms started last night as a right flank pain and radiated all over. She has associated nausea but no vomiting. She states that the pain is now in the right lower quadrant. She does report some urinary urgency. Last menstrual period was about 3 weeks ago. No other complaints at this time. No history of surgery or kidney stones. Exam reveals mild right-sided lower abdominal tenderness. She has some bilateral CVA tenderness. Vital signs reveal hypertension. Afebrile. The patient's CT scan of the pelvis did not show acute process. Chemistry panel showed no acute electrolyte abnormality or kidney dysfunction. hCG was negative. Hemoglobin came back at 7.0. Back in 2019 it was around 11. Urine did not show infection. I talked to the patient about her symptoms and results. She does report that she has been feeling somewhat fatigued, occasionally lightheaded and having a craving for ice for the past couple of months. She did report that her periods are slightly longer than usual and possibly a couple days of that cycle is heavier than her typical cycle but does not report any prolonged bleeding for more than a week. Because of the patient's hemoglobin, type and screen was performed. I did speak with the hospitalist about seeing the patient for further evaluation as an inpatient. Guaiac testing of the stool was guaiac negative. A large sample was not obtained it was light brown. Triage Nursing notes reviewed. Vital Signs: reviewed Prior /Outside records reviewed: [none] Differential diagnosis: Kidney stone, appendicitis, bowel obstruction, reproductive organ abnormality, other Diagnostics, as interpreted by me: 12 lead ECG: [none] Cardiac Monitoring ordered: [none] Medical decision rules: [none] Imaging studies: [none] Procedures: none. Critical care: none. HPI: See MDM above. PAST MEDICAL HISTORY: See Below PAST SURGICAL HISTORY: See Below SOCIAL HISTORY: See Below HOME MEDICATIONS:See Below ALLERGIES: See Below VITALS: See Below PHYSICAL EXAMINATION: See MDM for positive findings otherwise unremarkable. CONSTITUTIONAL/VITAL SIGNS: Reviewed GENERAL:done as appropriate INTEGUMENTARY: done as appropriate HEAD: done as appropriate EYES: done as appropriate RESPIRATORY: done as appropriate CARDIOVASCULAR:done as appropriate GI/ABDOMEN:done as appropriate EXTREMITIES: done as appropriate NEUROLOGICAL: done as appropriate PSYCHIATRIC:done as appropriate MUSCULOSKELETAL:done as appropriate TRIAGE NURSING DOCUMENTATION REVIEWED. Past Med/Surg History Medical History Asthma Psoriasis Substance use disorder Syncopal episodes Tobacco use Surgical History History of foot surgery 2010 Clacaneal fracture Family History Other Diabetes Lung cancer Social History Smoking Status: Current every day smoker Cigarettes Per Day: 1/2 ppd; Do You Dip or Chew Tobacco: No; Hx Alcohol Use: No Hx Substance Use: Yes Preferred Language: Dutch Communication Ability: Effective Beliefs That Will Affect Care: None marital status: Single marital status details: Significant Other Current Living Situation: Significant Other Feels Safe at Home: Yes Assistive Devices: None Allergies Allergies Allergy/AdvReac Type Severity Reaction Status Date / Time No Known Allergies Unverified 10/12/18 07:31 Home Meds Home Medications Medication Instructions Recorded Confirmed albuterol sulfate 90 mcg/actuation 2 puff inhalation QID 10/12/18 10/12/18 aerosol inhaler buprenorphine 8 mg-naloxone 2 mg 0.5 tab sublingual TID 10/12/18 10/12/18 sublingual tablet loratadine 10 mg tablet (Claritin) 10 mg PO DAILY PRN Allergy Symptoms 10/12/18 10/12/18 montelukast 10 mg tablet 10 mg PO QAM 10/12/18 10/12/18 Results & Data (ED) Vital Signs Vital Signs - 24 hr 09/26/22 17:32 09/26/22 18:58 09/26/22 19:20 Temperature 36.7 C Temperature Source Temporal Artery Scan Pulse Rate 95 H 85 Pulse Rate [Right Apical] 84 Respiratory Rate 20 20 Respiratory Effort / Characteristics Non-Labored Spontaneous Respiratory Depth Normal Respiratory Pattern Regular Blood Pressure 157/89 H Blood Pressure [Left Arm] 142/75 H Blood Pressure Mean 111 Blood Pressure Mean [Left Arm] 97 Pulse Oximetry 100 100 Oxygen Delivery Method Room Air Room Air Sepsis Recent Fever Within 48 Hours No Sepsis New/Unexplained Change in Mental Status N/A Sepsis Action Taken by Nursing No Action Required Laboratory Data 09/26/22 18:31 09/26/22 18:31 Lab Results 09/26/22 09/26/22 09/26/22 Range/Units 18:31 18:31 18:31 WBC Cancelled RBC Cancelled Hgb Cancelled Hct Cancelled MCV Cancelled MCH Cancelled MCHC Cancelled RDW Std Deviation Cancelled RDW Coeff of Carmen Cancelled Plt Count Cancelled MPV Cancelled Immature Gran % (Auto) Cancelled Neut % (Auto) Cancelled Lymph % (Auto) Cancelled [place] % (Auto) Cancelled Eos % (Auto) Cancelled Baso % (Auto) Cancelled Neut # (Auto) Cancelled Lymph # (Auto) Cancelled [place] # (Auto) Cancelled Eos # (Auto) Cancelled Baso # (Auto) Cancelled Immature Gran # (Auto) Cancelled Absolute Nucleated RBC Cancelled Nucleated RBC % (auto) Cancelled Neutrophils % (Manual) Cancelled Band Neutrophils % Cancelled Lymphocytes % (Manual) Cancelled Prolymphocyte % Cancelled Reactive Lymphs % (Man) Cancelled Monocytes % (Manual) Cancelled Eosinophils % (Manual) Cancelled Basophils % (Manual) Cancelled Metamyelocytes % (Man) Cancelled Myelocytes % (Man) Cancelled Promyelocytes % (Man) Cancelled Blast Cells % (Manual) Cancelled Plasma Cell % (Manual) Cancelled Other Cells % Cancelled Nucleated RBC % Cancelled Neutrophils # (Manual) Cancelled Band Neutrophils # Cancelled Total Absolute Neuts Cancelled Lymphocytes # (Manual) Cancelled Prolymphocyte # Cancelled Reactive Lymphs # Cancelled Total Abs Lymphocytes Cancelled Monocytes # (Manual) Cancelled Eosinophils # (Manual) Cancelled Basophils # (Manual) Cancelled Metamyelocytes # (Man) Cancelled Myelocytes # (Manual) Cancelled Promyelocytes # (Man) Cancelled Blast Cells # (Man) Cancelled Plasma Cell # (Manual) Cancelled Other Cells # Cancelled Nucleated RBCs # (Man) Cancelled Hypersegmented Neuts Cancelled Hyposegmented Neuts Cancelled Hypogranular Neuts Cancelled Large Granular Lymphs Cancelled # Lrg Granular Lymphs Cancelled Hairy Cells Cancelled Smudge Cells Cancelled Toxic Granulation Cancelled Toxic Vacuolation Cancelled Dohle Bodies Cancelled Farooq Rods Cancelled Platelet Estimate Cancelled Hypogranular Platelets Cancelled Giant Platelets Cancelled Platelet Satelliting Cancelled RBC Morphology Cancelled Polychromasia Cancelled Hypochromasia Cancelled Poikilocytosis Cancelled Basophilic Stippling Cancelled Anisocytosis Cancelled Microcytosis Cancelled Macrocytosis Cancelled Spherocytes Cancelled Pappenheimer Bodies Cancelled Sickle Cells Cancelled Target Cells Cancelled Tear Drop Cells Cancelled Ovalocytes Cancelled Stomatocytes Cancelled [place] Bodies Cancelled Echinocytes Cancelled Acanthocytes (Spur) Cancelled Rouleaux Cancelled RBC Agglutinates Cancelled Schistocytes Cancelled Sezary Cell Cancelled Sodium 134 L (136-145) mmol/L Potassium 3.7 (3.5-5.1) mmol/L Chloride 104 (98-107) mmol/L Carbon Dioxide 20 L (21-32) mmol/L Anion Gap 10 (3-11) BUN 7 (6-23) mg/dl Creatinine 0.56 L (0.6-1.2) mg/dl Est Cr Clr Drug Dosing 112.4 ml/min Est GFR ( Amer) 133.3 ml/min Est GFR (Non-Af Amer) 115.0 ml/min BUN/Creatinine Ratio 12.5 (10-20) Glucose 84 (70-99(Fasting)) mg/dl Calcium 9.1 (8.6-10.3) mg/dl Total Bilirubin 0.4 (0.2-1.0) mg/dl AST 21 (13-39) U/L ALT 19 (7-52) U/L Alkaline Phosphatase 101 (34-104) U/L Total Protein 7.7 (6.0-8.3) gm/dl Albumin 4.2 (3.4-5.0) gm/dl Globulin 3.5 (2.5-4.0) gm/dl Albumin/Globulin Ratio 1.2 (0.9-2) HCG, Qual Negative (Negative) Urine Color Urine Appearance (Clear) Urine pH (4.5-7.5) Ur Specific [place] (1.000-1.030) Urine Protein (Negative) Urine Glucose (UA) (Negative) Urine Ketones (Negative) Urine Blood (Negative) Urine Nitrite (Negative) Urine Bilirubin (Negative) Urine Urobilinogen (Negative) Ur Leukocyte Esterase (Negative) Blood Parasites ID Cancelled 09/26/22 09/26/22 Range/Units 18:31 19:46 WBC 6.09 RBC 3.87 L Hgb 7.0 L Hct 24.9 L MCV 64.3 L MCH 18.1 L MCHC 28.1 L RDW Std Deviation 42.8 RDW Coeff of Carmen 18.9 H Plt Count 309 MPV 9.1 L Immature Gran % (Auto) 0.0 Neut % (Auto) 61.1 Lymph % (Auto) 25.6 [place] % (Auto) 9.0 Eos % (Auto) 3.6 Baso % (Auto) 0.7 Neut # (Auto) 3.72 Lymph # (Auto) 1.56 [place] # (Auto) 0.55 Eos # (Auto) 0.22 Baso # (Auto) 0.04 Immature Gran # (Auto) 0.00 L Absolute Nucleated RBC Nucleated RBC % (auto) Neutrophils % (Manual) Band Neutrophils % Lymphocytes % (Manual) Prolymphocyte % Reactive Lymphs % (Man) Monocytes % (Manual) Eosinophils % (Manual) Basophils % (Manual) Metamyelocytes % (Man) Myelocytes % (Man) Promyelocytes % (Man) Blast Cells % (Manual) Plasma Cell % (Manual) Other Cells % Nucleated RBC % Neutrophils # (Manual) Band Neutrophils # Total Absolute Neuts Lymphocytes # (Manual) Prolymphocyte # Reactive Lymphs # Total Abs Lymphocytes Monocytes # (Manual) Eosinophils # (Manual) Basophils # (Manual) Metamyelocytes # (Man) Myelocytes # (Manual) Promyelocytes # (Man) Blast Cells # (Man) Plasma Cell # (Manual) Other Cells # Nucleated RBCs # (Man) Hypersegmented Neuts Hyposegmented Neuts Hypogranular Neuts Large Granular Lymphs # Lrg Granular Lymphs Hairy Cells Smudge Cells Toxic Granulation Toxic Vacuolation Dohle Bodies Farooq Rods Platelet Estimate Hypogranular Platelets Giant Platelets Platelet Satelliting RBC Morphology Polychromasia Hypochromasia Present Poikilocytosis Basophilic Stippling Anisocytosis Microcytosis Present Macrocytosis Spherocytes Pappenheimer Bodies Sickle Cells Target Cells Tear Drop Cells Ovalocytes Stomatocytes [place] Bodies Echinocytes Acanthocytes (Spur) Rouleaux RBC Agglutinates Schistocytes Sezary Cell Sodium (136-145) mmol/L Potassium (3.5-5.1) mmol/L Chloride (98-107) mmol/L Carbon Dioxide (21-32) mmol/L Anion Gap (3-11) BUN (6-23) mg/dl Creatinine (0.6-1.2) mg/dl Est Cr Clr Drug Dosing ml/min Est GFR ( Amer) ml/min Est GFR (Non-Af Amer) ml/min BUN/Creatinine Ratio (10-20) Glucose (70-99(Fasting)) mg/dl Calcium (8.6-10.3) mg/dl Total Bilirubin (0.2-1.0) mg/dl AST (13-39) U/L ALT (7-52) U/L Alkaline Phosphatase (34-104) U/L Total Protein (6.0-8.3) gm/dl Albumin (3.4-5.0) gm/dl Globulin (2.5-4.0) gm/dl Albumin/Globulin Ratio (0.9-2) HCG, Qual (Negative) Urine Color Yellow Urine Appearance Clear (Clear) Urine pH 6.0 (4.5-7.5) Ur Specific [place] 1.009 (1.000-1.030) Urine Protein Negative (Negative) Urine Glucose (UA) Negative (Negative) Urine Ketones Negative (Negative) Urine Blood Negative (Negative) Urine Nitrite Negative (Negative) Urine Bilirubin Negative (Negative) Urine Urobilinogen Negative (Negative) Ur Leukocyte Esterase Negative (Negative) Blood Parasites ID Administered Medications Discontinued Medications Sodium Chloride (Nss 1000ml) 1,000 mls @ 999 mls/hr IV .Q1H1M ONE Stop: 09/26/22 19:55 Last Admin: 09/26/22 19:26 Dose: 999 mls/hr Documented By: ANANTH Ketorolac Tromethamine (Ketorolac 30 Mg/Ml Vial) 30 mg IV NOW STA Stop: 09/26/22 18:56 Last Admin: 09/26/22 19:26 Dose: 30 mg Documented By: ANANTH Ondansetron HCl (Ondansetron Inj 2 Mg/Ml 2 Ml Vial) 4 mg IV NOW STA Stop: 09/26/22 18:56 Last Admin: 09/26/22 19:26 Dose: 4 mg Documented By: ANANTH Imaging Data Radiologist's Impression: Abdomen/Pelvis CT 09/26/22 18:50 CT SCAN OF THE ABDOMEN AND PELVIS WITHOUT IV CONTRAST CLINICAL HISTORY: Right flank pain. Nausea. COMPARISON STUDY: No priors. TECHNIQUE: CT scan of the abdomen and pelvis is performed from the lung bases to the proximal femora. Images are reviewed in the axial, sagittal, and coronal planes. IV contrast was not administered for this examination. A dose lowering technique was utilized adhering to the principles of ALARA. CT DOSE: 626.50 mGy.cm FINDINGS: Lung bases: The heart is normal in size and without pericardial effusion. There is significant attenuation of the cardiac blood pool as compared to the acromion suggesting The lung bases are clear noting bibasilar atelectasis. Liver: The unenhanced liver is normal in size, contour, and attenuation. There is no intrahepatic biliary ductal dilatation. A 7 mm lipoma is noted in the right lobe. Gallbladder: Contracted. Spleen: Normal in size and attenuation. There are calcified splenic granulomas. Pancreas: Unremarkable. Adrenal glands: Unremarkable. Kidneys: The unenhanced kidneys are normal in size and without hydronephrosis. No renal calculi are identified and there is no ureteral stone. There is no evid ence of contour deforming renal mass lesion. Abdominal vasculature: The abdominal aorta is normal in course and caliber noting scattered foci of atherosclerotic calcification. Bowel: There is moderate colonic fecal retention. No bowel obstruction is seen. The appendix is well-visualized and normal. Peritoneum: There is no intraperitoneal free air or abdominal ascites. There is a fat-containing umbilical hernia. Lymphadenopathy: None. Pelvic viscera: The bladder, uterus, and adnexa are normal as visualized. Skeletal structures: No lytic or blastic lesions are seen. Mild degenerative change is noted in the lumbar spine. IMPRESSION: No acute infectious or inflammatory findings are identified in the abdomen or pelvis. ACT 112: Negative or not required by law. Electronically signed by: Loco Mccormick M.D. 09/26/2022 7:29 PM Discharge Plan Visit Data Chief Complaint: Abdominal Pain Stated Complaint: SEVERE ABDOMINAL PAIN,NAUSEA, ED Provider: Axel Taveras Discharge Problem: Anemia, Abdominal pain Patient Disposition: Admitted As Inpatient Forms Stand Alone Forms: [facility], [facility] Emergency Department, Impor tant Visit Information Prescriptions Prescriptions: No Action montelukast 10 mg tablet 10 mg PO QAM albuterol sulfate 90 mcg/actuation HFA aerosol inhaler 2 puff inhalation QID loratadine [Claritin] 10 mg Tablet 10 mg PO DAILY PRN (Reason: Allergy Symptoms) buprenorphine-naloxone 8-2 mg tablet, sublingual 0.5 tab sublingual TID Referrals Referrals: PCP,NO [Physician] -
[2022-09-26 19:19] LABS: Albumin Level 4.2 gm/dl (3.4-5.0); Bilirubin,Total 0.4 mg/dl (0.2-1.0); Calcium 9.1 mg/dl (8.6-10.3)
[2022-09-26 19:25] LABS: Albumin Globulin Ratio 1.2 (0.9-2); BUN Creatinine Ratio 12.5 (10-20); Creatinine Clr Calc Pharmacy 112.4 ml/min; Est GFR (African American) 133.3 ml/min; Globulin 3.5 gm/dl (2.5-4.0); Total Protein 7.7 gm/dl (6.0-8.3)
[2022-09-26 19:30] LABS: Potassium 3.7 mmol/L (3.5-5.1)
--- NOTE | 2022-09-26 19:31 | CT Scan Report ---
CT SCAN OF THE ABDOMEN AND PELVIS WITHOUT IV CONTRAST CLINICAL HISTORY: Right flank pain. Nausea. COMPARISON STUDY: No priors. TECHNIQUE: CT scan of the abdomen and pelvis is performed from the lung bases to the proximal femora. Images are reviewed in the axial, sagittal, and coronal planes. IV contrast was not administered for this examination. A dose lowering technique was utilized adhering to the principles of ALARA. CT DOSE: 626.50 mGy.cm FINDINGS: Lung bases: The heart is normal in size and without pericardial effusion. There is significant attenu ation of the cardiac blood pool as compared to the acromion suggesting The lung bases are clear notin g bibasilar atelectasis. Liver: The unenhanced liver is normal in size, contour, and attenuation. There is no intrahepatic ronal iary ductal dilatation. A 7 mm lipoma is noted in the right lobe. Gallbladder: Contracted. Spleen: Normal in size and attenuation. There are calcified splenic granulomas. Pancreas: Unremarkable. Adrenal glands: Unremarkable. Kidneys: The unenhanced kidneys are normal in size and without hydronephrosis. No renal calculi are i dentified and there is no ureteral stone. There is no evidence of contour deforming renal mass lesion . Abdominal vasculature: The abdominal aorta is normal in course and caliber noting scattered foci of a therosclerotic calcification. Bowel: There is moderate colonic fecal retention. No bowel obstruction is seen. The appendix is well -visualized and normal. Peritoneum: There is no intraperitoneal free air or abdominal ascites. There is a fat-containing umbi lical hernia. Lymphadenopathy: None. Pelvic viscera: The bladder, uterus, and adnexa are normal as visualized. Skeletal structures: No lytic or blastic lesions are seen. Mild degenerative change is noted in the l umbar spine. IMPRESSION: No acute infectious or inflammatory findings are identified in the abdomen or pelvis. ACT 112: Negative or not required by law. Electronically signed by: Loco Mccormick M.D. 09/26/2022 7:29 PM
[2022-09-26 19:38] LABS: Pregnancy Test, Serum Negative (Negative)
[2022-09-26 20:25] LABS: Appearance Urine Clear (Clear); Bilirubin Urine Negative (Negative); Blood Urine Negative (Negative); Color Urine Yellow; Glucose Urine UA Negative (Negative); Ketones Urine Negative (Negative); Leukocyte Esterase Urine Negative (Negative); Nitrite Urine Negative (Negative); Protein Urine Negative (Negative); Specific Gravity Urine 1.009 (1.000-1.030); Urobilinogen Urine Negative (Negative)
[2022-09-26 20:27] LABS: Basophils # (auto) 0.04 K/uL (0-0.2); Basophils % (auto) 0.7 %; Eosinophils # (auto) 0.22 K/uL (0-0.50); Eosinophils % (auto) 3.6 %; Hematocrit (blood only) 24.9 % (37.0-47.0); Hypochromasia Present; Lymphocytes # (auto) 1.56 K/uL (1.2-3.4); Lymphocytes % (auto) 25.6 %; Mean Corpuscular Hemoglobin 18.1 pg (25.0-34.0); Mean Corpuscular Hgb Conc 28.1 g/dL (32.0-36.0); Mean Corpuscular Volume 64.3 fL (80.0-100.0); Mean Platelet Volume 9.1 fL (9.4-12.4); Microcytosis Present; Monocytes # (auto) 0.55 K/uL (0.11-0.59); Neutrophils # (auto) 3.72 K/uL (1.40-6.50); Neutrophils % (auto) 61.1 %; Platelet Count 309 K/uL (130-400); RDW Coefficient of Variation 18.9 % (11.5-14.5); RDW Standard Deviation 42.8 fL (36.4-46.3); Red Blood Count 3.87 M/uL (4.20-5.40); White Blood Count 6.09 K/ul (4.8-10.8)
[2022-09-26 21:53] LABS: Hematocrit (blood only) 25.2 % (37.0-47.0); Hemoglobin 6.9 g/dl (12.0-16.0)
[2022-09-26 21:59] LABS: Reticulocyte % 1.2 % (0.5-2.0); Reticulocytes # 0.05 10^6/uL (0.02-0.10)
--- NOTE | 2022-09-26 22:20 | History & Physical Report ---
Date of Service September 26, 2022 Assessment & Plan (1) Symptomatic anemia: Plan: ? Secondary to bleed FOBT done at the ER was negative. asthma, stable Leg swelling rule out DVT ongoing tobacco abuse Medical telemetry Anemia work-up Transfuse PRBC to maintain hemoglobin greater than 7 given symptomatic anemia Pelvic ultrasound, Gynecology consult Re: Menorrhagia LE venous Dopplers rule out DVT Nicotine patch as needed DVT prophylaxis. SCDs Re: GI bleed causing significant anemia Full code Text document was generated using [employer] voice recognition software. It may contain grammatical or spelling errors. Kindly contact undersigned for clarification of any documentation item in question. History of Present Illness Chief Complaint: Right flank, right abdominal pain Primary Care Provider: Madeline Rudolph DO History obtained from patient, family, and records. Medical history significant for asthma, ongoing tobacco abuse. Last confinement October 2018 for asthma exacerbation. 1 day history of achy right-sided abdominal/flank pain with nausea, no emesis. No black/no bloody stools. Similar to menstrual cramps prior to periods but more intense. History heavy menses the last 3 months, last period was about 3 weeks ago. Intermittent shortness of breath at home especially on exertion. Transient headache symptoms last month. Patient feels legs more swollen than usual. Patient brought to ER by family for evaluation. 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, no EtOH intake, hotel employee Allergies Allergy/AdvReac Type Severity Reaction Status Date / Time No Known Allergies Unverified 09/26/22 21:36 Home Medications Medication Instructions Recorded Confirmed Type albuterol sulfate 90 mcg/actuation 2 puff inhalation QID PRN 10/12/18 09/26/22 History aerosol inhaler Shortness Of Breath Or Wheezing albuterol sulfate 2.5 mg/3 mL 2.5 mg inhalation Q4H PRN 09/26/22 09/26/22 History (0.083 %) solution for nebulization Shortness Of Breath Or Wheezing ibuprofen 200 mg tablet 600 mg PO TID PRN Pain 09/26/22 09/26/22 History Past Med/Surg History Medical History Asthma Psoriasis Substance use disorder Syncopal episodes Tobacco use Surgical History History of foot surgery 2010 Clacaneal fracture Family History Other Diabetes Lung cancer Social History Smoking Status: Current every day smoker Cigarettes Per Day: 10; Second Hand Exposure: No; Do You Dip or Chew Tobacco: No; Tobacco Cessation Education Requested by Patient: No Hx Alcohol Use: No Hx Substance Use: No Preferred Language: Maldivian Communication Ability: Effective Wrecker Operator Required: No Beliefs That Will Affect Care: None marital status: Single marital status details: Significant Other Current Living Situation: Family Current Living Situation Comment: lives with sister Other Information That Helps Us Care for You: No Feels Safe at Home: Yes Safety Concerns: Feels Safe At This Time Assistive Devices: Contacts Review of Systems Review of Systems: As per HPI, all other systems reviewed and negative Physical Exam Physical Exam: GENERAL: Slightly uncomfortable, slightly anxious, no respiratory distress SKIN: Pallor, warm HEENT: Pale palpebral conjunctivae, no ptosis, dry buccal mucosa NECK : Supple, no tenderness CHEST : Decreased breath sounds, no tenderness HEART : RRR, no obvious murmurs ABDOMEN: Some distention, minimal right-sided abdominal tenderness EXTREMITIES : Minimal LE swelling, no LE tenderness, no other conspicuous deformities noted NEUROLOGIC : Coherent, no facial asymmetry, no other gross focality Results & Data Results & Data Vital Signs (Past 12 Hours) Vital Signs Temp Pulse Pulse Resp BP BP Pulse Ox 09/26/22 21:10 83 20 100 09/26/22 21:00 84 16 100 09/26/22 21:00 132/65 09/26/22 20:50 87 22 100 09/26/22 20:40 81 100 09/26/22 20:30 77 13 100 09/26/22 20:20 77 19 100 09/26/22 20:10 76 19 100 09/26/22 20:00 73 22 100 09/26/22 20:00 129/81 09/26/22 19:50 81 21 100 09/26/22 19:40 80 18 100 09/26/22 19:30 77 17 100 09/26/22 19:20 83 17 100 09/26/22 19:20 85 09/26/22 18:58 84 20 142/75 H 100 09/26/22 17:32 36.7 C 95 H 20 157/89 H 100 O2 Del Method 09/26/22 21:10 09/26/22 21:00 09/26/22 21:00 09/26/22 20:50 09/26/22 20:40 09/26/22 20:30 09/26/22 20:20 09/26/22 20:10 09/26/22 20:00 09/26/22 20:00 09/26/22 19:50 09/26/22 19:40 09/26/22 19:30 09/26/22 19:20 09/26/22 19:20 09/26/22 18:58 Room Air 09/26/22 17:32 Room Air Laboratory Results Laboratory Results WBC 6.09 K/ul (4.8-10.8) 09/26/22 19:46 RBC 3.87 M/uL (4.20-5.40) L 09/26/22 19:46 Hgb 6.9 g/dl (12.0-16.0) L* 09/26/22 21:29 Hct 25.2 % (37.0-47.0) L 09/26/22 21:29 MCV 64.3 fL (80.0-100.0) L 09/26/22 19:46 MCH 18.1 pg (25.0-34.0) L 09/26/22 19:46 MCHC 28.1 g/dL (32.0-36.0) L 09/26/22 19:46 RDW Std Deviation 42.8 fL (36.4-46.3) 09/26/22 19:46 RDW Coeff of Carmen 18.9 % (11.5-14.5) H 09/26/22 19:46 Plt Count 309 K/uL (130-400) 09/26/22 19:46 MPV 9.1 fL (9.4-12.4) L 09/26/22 19:46 Immature Gran % (Auto) 0.0 % 09/26/22 19:46 Neut % (Auto) 61.1 % 09/26/22 19:46 Lymph % (Auto) 25.6 % 09/26/22 19:46 [place] % (Auto) 9.0 % 09/26/22 19:46 Eos % (Auto) 3.6 % 09/26/22 19:46 Baso % (Auto) 0.7 % 09/26/22 19:46 Reticulocyte % (Auto) 1.2 % (0.5-2.0) 09/26/22 21:29 Neut # (Auto) 3.72 K/uL (1.40-6.50) 09/26/22 19:46 Lymph # (Auto) 1.56 K/uL (1.2-3.4) 09/26/22 19:46 [place] # (Auto) 0.55 K/uL (0.11-0.59) 09/26/22 19:46 Eos # (Auto) 0.22 K/uL (0-0.50) 09/26/22 19:46 Baso # (Auto) 0.04 K/uL (0-0.2) 09/26/22 19:46 Reticulocyte # 0.05 10^6/uL (0.02-0.10) 09/26/22 21:29 Immature Gran # (Auto) 0.00 K/uL (0.01-0.20) L 09/26/22 19:46 Absolute Nucleated RBC Cancelled 09/26/22 18:31 Nucleated RBC % (auto) Cancelled 09/26/22 18:31 Neutrophils % (Manual) Cancelled 09/26/22 18:31 Band Neutrophils % Cancelled 09/26/22 18:31 Lymphocytes % (Manual) Cancelled 09/26/22 18:31 Prolymphocyte % Cancelled 09/26/22 18:31 Reactive Lymphs % (Man) Cancelled 09/26/22 18:31 Monocytes % (Manual) Cancelled 09/26/22 18:31 Eosinophils % (Manual) Cancelled 09/26/22 18:31 Basophils % (Manual) Cancelled 09/26/22 18:31 Metamyelocytes % (Man) Cancelled 09/26/22 18:31 Myelocytes % (Man) Cancelled 09/26/22 18:31 Promyelocytes % (Man) Cancelled 09/26/22 18:31 Blast Cells % (Manual) Cancelled 09/26/22 18:31 Plasma Cell % (Manual) Cancelled 09/26/22 18:31 Other Cells % Cancelled 09/26/22 18:31 Nucleated RBC % Cancelled 09/26/22 18:31 Neutrophils # (Manual) Cancelled 09/26/22 18:31 Band Neutrophils # Cancelled 09/26/22 18:31 Total Absolute Neuts Cancelled 09/26/22 18:31 Lymphocytes # (Manual) Cancelled 09/26/22 18:31 Prolymphocyte # Cancelled 09/26/22 18:31 Reactive Lymphs # Cancelled 09/26/22 18:31 Total Abs Lymphocytes Cancelled 09/26/22 18:31 Monocytes # (Manual) Cancelled 09/26/22 18:31 Eosinophils # (Manual) Cancelled 09/26/22 18:31 Basophils # (Manual) Cancelled 09/26/22 18:31 Metamyelocytes # (Man) Cancelled 09/26/22 18:31 Myelocytes # (Manual) Cancelled 09/26/22 18:31 Promyelocytes # (Man) Cancelled 09/26/22 18:31 Blast Cells # (Man) Cancelled 09/26/22 18:31 Plasma Cell # (Manual) Cancelled 09/26/22 18:31 Other Cells # Cancelled 09/26/22 18:31 Nucleated RBCs # (Man) Cancelled 09/26/22 18:31 Hypersegmented Neuts Cancelled 09/26/22 18:31 Hyposegmented Neuts Cancelled 09/26/22 18:31 Hypogranular Neuts Cancelled 09/26/22 18:31 Large Granular Lymphs Cancelled 09/26/22 18:31 # Lrg Granular Lymphs Cancelled 09/26/22 18:31 Hairy Cells Cancelled 09/26/22 18:31 Smudge Cells Cancelled 09/26/22 18:31 Toxic Granulation Cancelled 09/26/22 18:31 Toxic Vacuolation Cancelled 09/26/22 18:31 Dohle Bodies Cancelled 09/26/22 18:31 Farooq Rods Cancelled 09/26/22 18:31 Platelet Estimate Cancelled 09/26/22 18:31 Hypogranular Platelets Cancelled 09/26/22 18:31 Giant Platelets Cancelled 09/26/22 18:31 Platelet Satelliting Cancelled 09/26/22 18:31 RBC Morphology Cancelled 09/26/22 18:31 Polychromasia Cancelled 09/26/22 18:31 Hypochromasia Present 09/26/22 19:46 Poikilocytosis Cancelled 09/26/22 18:31 Basophilic Stippling Cancelled 09/26/22 18:31 Anisocytosis Cancelled 09/26/22 18:31 Microcytosis Present 09/26/22 19:46 Macrocytosis Cancelled 09/26/22 18:31 Spherocytes Cancelled 09/26/22 18:31 Pappenheimer Bodies Cancelled 09/26/22 18:31 Sickle Cells Cancelled 09/26/22 18:31 Target Cells Cancelled 09/26/22 18:31 Tear Drop Cells Cancelled 09/26/22 18:31 Ovalocytes Cancelled 09/26/22 18:31 Stomatocytes Cancelled 09/26/22 18:31 [place]am[place]-Lyons Switch Bodies Cancelled 09/26/22 18:31 Echinocytes Cancelled 09/26/22 18:31 Acanthocytes (Spur) Cancelled 09/26/22 18:31 Rouleaux Cancelled 09/26/22 18:31 RBC Agglutinates Cancelled 09/26/22 18:31 Schistocytes Cancelled 09/26/22 18:31 Sezary Cell Cancelled 09/26/22 18:31 Sodium 134 mmol/L (136-145) L 09/26/22 18:31 Potassium 3.7 mmol/L (3.5-5.1) 09/26/22 18:31 Chloride 104 mmol/L (98-107) 09/26/22 18:31 Carbon Dioxide 20 mmol/L (21-32) L 09/26/22 18:31 Anion Gap 10 (3-11) 09/26/22 18:31 BUN 7 mg/dl (6-23) 09/26/22 18:31 Creatinine 0.56 mg/dl (0.6-1.2) L 09/26/22 18:31 Est Cr Clr Drug Dosing 112.4 ml/min 09/26/22 18:31 Est GFR ( Amer) 133.3 ml/min 09/26/22 18:31 Est GFR (Non-Af Amer) 115.0 ml/min 09/26/22 18:31 BUN/Creatinine Ratio 12.5 (10-20) 09/26/22 18:31 Glucose 84 mg/dl (70-99(Fasting)) 09/26/22 18:31 Calcium 9.1 mg/dl (8.6-10.3) 09/26/22 18:31 Total Bilirubin 0.4 mg/dl (0.2-1.0) 09/26/22 18:31 AST 21 U/L (13-39) 09/26/22 18:31 ALT 19 U/L (7-52) 09/26/22 18:31 Alkaline Phosphatase 101 U/L (34-104) 09/26/22 18:31 Total Protein 7.7 gm/dl (6.0-8.3) 09/26/22 18:31 Albumin 4.2 gm/dl (3.4-5.0) 09/26/22 18:31 Globulin 3.5 gm/dl (2.5-4.0) 09/26/22 18:31 Albumin/Globulin Ratio 1.2 (0.9-2) 09/26/22 18:31 HCG, Qual Negative (Negative) 09/26/22 18:31 Urine Color Yellow 09/26/22 18:31 Urine Appearance Clear (Clear) 09/26/22 18:31 Urine pH 6.0 (4.5-7.5) 09/26/22 18:31 Ur Specific [place] 1.009 (1.000-1.030) 09/26/22 18:31 Urine Protein Negative (Negative) 09/26/22 18:31 Urine Glucose (UA) Negative (Negative) 09/26/22 18:31 Urine Ketones Negative (Negative) 09/26/22 18:31 Urine Blood Negative (Negative) 09/26/22 18:31 Urine Nitrite Negative (Negative) 09/26/22 18:31 Urine Bilirubin Negative (Negative) 09/26/22 18:31 Urine Urobilinogen Negative (Negative) 09/26/22 18:31 Ur Leukocyte Esterase Negative (Negative) 09/26/22 18:31 SARS-CoV-2, RNA, NAAT NEGATIVE (NEGATIVE) 09/26/22 21:10 Blood Parasites ID Cancelled 09/26/22 18:31 Impressions Abdomen/Pelvis CT 09/26/22 18:50 CT SCAN OF THE ABDOMEN AND PELVIS WITHOUT IV CONTRAST CLINICAL HISTORY: Right flank pain. Nausea. COMPARISON STUDY: No priors. TECHNIQUE: CT scan of the abdomen and pelvis is performed from the lung bases to the proximal femora. Images are reviewed in the axial, sagittal, and coronal planes. IV contrast was not administered for this examination. A dose lowering technique was utilized adhering to the principles of ALARA. CT DOSE: 626.50 mGy.cm FINDINGS: Lung bases: The heart is normal in size and without pericardial effusion. There is significant attenuation of the cardiac blood pool as compared to the acromion suggesting The lung bases are clear noting bibasilar atelectasis. Liver: The unenhanced liver is normal in size, contour, and attenuation. There is no intrahepatic biliary ductal dilatation. A 7 mm lipoma is noted in the right lobe. Gallbladder: Contracted. Spleen: Normal in size and attenuation. There are calcified splenic granulomas. Pancreas: Unremarkable. Adrenal glands: Unremarkable. Kidneys: The unenhanced kidneys are normal in size and without hydronephrosis. No renal calculi are identified and there is no ureteral stone. There is no evidence of contour deforming renal mass lesion. Abdominal vasculature: The abdominal aorta is normal in course and caliber noting scattered foci of atherosclerotic calcification. Bowel: There is moderate colonic fecal retention. No bowel obstruction is seen. The appendix is well-visualized and normal. Peritoneum: There is no intraperitoneal free air or abdominal ascites. There is a fat-containing umbilical hernia. Lymphadenopathy: None. Pelvic viscera: The bladder, uterus, and adnexa are normal as visualized. Skeletal structures: No lytic or blastic lesions are seen. Mild degenerative change is noted in the lumbar spine. IMPRESSION: No acute infectious or inflammatory findings are identified in the abdomen or pelvis. ACT 112: Negative or not required by law. Electronically signed by: Loco Mccormick M.D. 09/26/2022 7:29 PM Diagnostic Findings Chest x-ray as per my interpretation atelectasis
[2022-09-26] MEDS ORDERED: SODIUM CHLORIDE 0.9% 250 ML IV PRN (22:21)
[2022-09-26 22:40] LABS: Vitamin B12 182 pg/ml (180-914)
--- NOTE | 2022-09-26 22:42 | XRay Report ---
SINGLE VIEW CHEST CLINICAL HISTORY: Dyspnea FINDINGS: An AP, portable, upright chest radiograph is compared to study dated 10/12/2018. The cardiome diastinal silhouette is unremarkable. The lungs and pleural spaces are clear noting mild bibasilar at electasis. No pneumothorax is seen. The bony thorax is grossly intact. IMPRESSION: No active disease in the chest. ACT 112: Negative or not required by law. Electronically signed by: Loco Mccormick M.D. 09/26/2022 10:41 PM
[2022-09-26 23:35] LABS: Magnesium 1.8 mg/dl (1.7-2.4)
[2022-09-26 23:53] LABS: Ferritin 2.8 ng/ml (8-388)
--- NOTE | 2022-09-27 00:04 | Ultrasound Report ---
Exam(s): US VENOUS BILATERAL LOWER EXTREMITIES EXAM: US Duplex Bilateral Lower Extremities Veins CLINICAL HISTORY: Reason for exam: leg swelling. TECHNIQUE: Real-time duplex ultrasound scan of the bilateral lower extremity veins integrating B-mode two-dimensional vascular structure, Doppler spectral analysis, color flow Doppler imaging and compression. COMPARISON: No relevant prior studies available. FINDINGS: Right deep veins: Unremarkable. No DVT in the right common femoral, femoral, proximal deep femoral or popliteal veins. The veins demonstrate normal color flow, are normally compressible, with normal phasic flow and/or augmentation response. Right superficial veins: Unremarkable. No thrombus in the visualized right great saphenous vein. Left deep veins: Unremarkable. No DVT in the left common femoral, femoral, proximal deep femoral or popliteal veins. The veins demonstrate normal color flow, are normally compressible, with normal phasic flow and/or augmentation response. Left superficial veins: Unremarkable. No thrombus in the visualized left great saphenous vein. Soft tissues: No acute findings. No popliteal cyst. IMPRESSION: Normal bilateral lower extremity duplex venous ultrasound. Electronically signed by: Ramirez Shabazz MD 09/27/22 00:03 AM
--- NOTE | 2022-09-27 00:10 | Ultrasound Report ---
Exam(s): US PELVIS EXAM: US Pelvis Transabdominal, Complete CLINICAL HISTORY: Reason for exam: heavy menses. TECHNIQUE: Real-time complete transabdominal pelvic ultrasound with image documentation. COMPARISON: No relevant prior studies available. FINDINGS: Uterus/cervix: The uterus measures 7.1 x 3.7 x 3.7 cm. The endometrium measures 0.8 cm. No myometrial mass. Right ovary: The right ovary is not visualized. Left ovary: The left ovary measures 2.1 x 1.2 x 1.7 cm. Normal blood flow. Free fluid: No free fluid. Bladder: Unremarkable as visualized. Wall is normal thickness for degree of distention. IMPRESSION: No acute pathology. Nonvisualization of the right ovary. Electronically signed by: Ramirez Shabazz MD 09/27/22 00:09 AM
[2022-09-27] MEDS ORDERED: IBUPROFEN 200 MG TAB PO PRN (01:04)
[2022-09-27] MEDS ORDERED: ACETAMINOPHEN 325 MG TAB PO PRN (01:04)
[2022-09-27] MEDS ORDERED: hydrOXYzine HCl 10 MG TAB PO PRN (01:04)
[2022-09-27] MEDS ORDERED: PROMETHAZINE HCL 6.25 MG in SODIUM CHLORIDE 0.9% 50 ML IV PRN (01:04)
--- NOTE | 2022-09-27 07:52 | Hospitalist Progress Note ---
Date of Service September 27, 2022 Assessment & Plan (1) Symptomatic anemia: Plan: ? Secondary to bleed FOBT done at the ER was negative. asthma, stable Leg swelling rule out DVT ongoing tobacco abuse Medical telemetry Anemia work-up Transfuse PRBC to maintain hemoglobin greater than 7 given symptomatic anemia Pelvic ultrasound, Gynecology consult Re: Menorrhagia LE venous Dopplers rule out DVT Nicotine patch as needed DVT prophylaxis. SCDs Re: GI bleed causing significant anemia Full code Text document was generated using [employer] voice recognition software. It may contain grammatical or spelling errors. Kindly contact undersigned for clarification of any documentation item in question. Admission and Anticipated Discharge Date Admission Date: September 26, 2022 Results & Data Results & Data Vital Signs (Past 12 Hours) Vital Signs Temp Pulse Pulse Resp BP BP Pulse Ox 09/27/22 07:16 81 09/27/22 04:13 36.6 C 91 H 20 129/76 97 09/27/22 04:13 36.6 C 91 H 20 129/76 97 09/27/22 04:00 36.7 C 85 18 131/60 96 09/27/22 03:00 36.6 C 94 H 18 123/67 96 09/27/22 02:36 101 H 09/27/22 02:30 36.6 C 96 H 18 109/65 96 09/27/22 02:15 36.6 C 89 18 124/71 97 09/27/22 01:55 36.6 C 89 18 106/60 98 09/27/22 01:11 95 H 18 127/77 98 09/27/22 01:00 82 16 130/72 99 09/26/22 21:10 83 20 100 09/26/22 21:00 84 16 100 09/26/22 21:00 132/65 09/26/22 20:50 87 22 100 09/26/22 20:40 81 100 09/26/22 20:30 77 13 100 09/26/22 20:20 77 19 100 09/26/22 20:10 76 19 100 09/26/22 20:00 73 22 100 09/26/22 20:00 129/81 O2 Del Method 09/27/22 07:16 09/27/22 04:13 09/27/22 04:13 09/27/22 04:00 09/27/22 03:00 09/27/22 02:36 09/27/22 02:30 09/27/22 02:15 09/27/22 01:55 09/27/22 01:11 Room Air 09/27/22 01:00 Room Air 09/26/22 21:10 09/26/22 21:00 09/26/22 21:00 09/26/22 20:50 09/26/22 20:40 09/26/22 20:30 09/26/22 20:20 09/26/22 20:10 09/26/22 20:00 09/26/22 20:00 Laboratory Results Short CBC 09/26/22 09/26/22 09/26/22 Range/Units 18:31 19:46 21:29 WBC Cancelled 6.09 Hgb Cancelled 7.0 L 6.9 L* Hct Cancelled 24.9 L 25.2 L Plt Count Cancelled 309 BMP 09/26/22 18:31 Sodium 134 L Potassium 3.7 Chloride 104 Carbon Dioxide 20 L BUN 7 Creatinine 0.56 L Glucose 84 Calcium 9.1 Liver Function 09/26/22 Range/Units 18:31 Total Bilirubin 0.4 (0.2-1.0) mg/dl AST 21 (13-39) U/L ALT 19 (7-52) U/L Alkaline Phosphatase 101 (34-104) U/L Albumin 4.2 (3.4-5.0) gm/dl Urine 09/26/22 Range/Units 18:31 Urine Color Yellow Urine Appearance Clear (Clear) Urine pH 6.0 (4.5-7.5) Ur Specific [place] 1.009 (1.000-1.030) Urine Protein Negative (Negative) Urine Glucose (UA) Negative (Negative) Diagnostic Findings Chest X-Ray 09/26/22 22:20 SINGLE VIEW CHEST CLINICAL HISTORY: Dyspnea FINDINGS: An AP, portable, upright chest radiograph is compared to study dated 10/12/2018. The cardiomediastinal silhouette is unremarkable. The lungs and pleural spaces are clear noting mild bibasilar atelectasis. No pneumothorax is seen. The bony thorax is grossly intact. IMPRESSION: No active disease in the chest. ACT 112: Negative or not required by law. Electronically signed by: Loco Mccormick M.D. 09/26/2022 10:41 PM Pelvis Ultrasound 09/26/22 22:36 Exam(s): US PELVIS EXAM: US Pelvis Transabdominal, Complete CLINICAL HISTORY: Reason for exam: heavy menses. TECHNIQUE: Real-time complete transabdominal pelvic ultrasound with image documentation. COMPARISON: No relevant prior studies available. FINDINGS: Uterus/cervix: The uterus measures 7.1 x 3.7 x 3.7 cm. The endometrium measures 0.8 cm. No myometrial mass. Right ovary: The right ovary is not visualized. Left ovary: The left ovary measures 2.1 x 1.2 x 1.7 cm. Normal blood flow. Free fluid: No free fluid. Bladder: Unremarkable as visualized. Wall is normal thickness for degree of distention. IMPRESSION: No acute pathology. Nonvisualization of the right ovary. Electronically signed by: Ramirez Shabazz MD 09/27/22 00:09 AM Venous Doppler Study 09/26/22 22:36 Exam(s): US VENOUS BILATERAL LOWER EXTREMITIES EXAM: US Duplex Bilateral Lower Extremities Veins CLINICAL HISTORY: Reason for exam: leg swelling. TECHNIQUE: Real-time duplex ultrasound scan of the bilateral lower extremity veins integrating B-mode two-dimensional vascular structure, Doppler spectral analysis, color flow Doppler imaging and compression. COMPARISON: No relevant prior studies available. FINDINGS: Right deep veins: Unremarkable. No DVT in the right common femoral, femoral, proximal deep femoral or popliteal veins. The veins demonstrate normal color flow, are normally compressible, with normal phasic flow and/or augmentation response. Right superficial veins: Unremarkable. No thrombus in the visualized right great saphenous vein. Left deep veins: Unremarkable. No DVT in the left common femoral, femoral, proximal deep femoral or popliteal veins. The veins demonstrate normal color flow, are normally compressible, with normal phasic flow and/or augmentation response. Left superficial veins: Unremarkable. No thrombus in the visualized left great saphenous vein. Soft tissues: No acute findings. No popliteal cyst. IMPRESSION: Normal bilateral lower extremity duplex venous ultrasound. Electronically signed by: Ramirez Shabazz MD 09/27/22 00:03 AM Medications Administered Current Inpatient Medications Acetaminophen (Acetaminophen 325 Mg Tab) 650 mg PO Q4H PRN PRN Reason: Pain or Fever Stop: 10/27/22 01:03 Hydroxyzine HCl (Hydroxyzine Hcl 10 Mg Tab) 10 mg PO QID PRN PRN Reason: Anxiety Stop: 10/27/22 01:03 Sodium Chloride (Nss) 250 mls @ 15 mls/hr IV .[id number] PRN PRN Reason: For Transfusion Duration Stop: 09/27/22 08:21 Promethazine HCl 6.25 mg/ (Sodium Chloride) 50.25 mls @ 201 mls/hr IV Q6H PRN PRN Reason: Nausea And Vomiting Stop: 10/27/22 01:03 Ibuprofen (Ibuprofen 200 Mg Tab) 200 mg PO Q6H PRN PRN Reason: Mild Pain (Scale 1, 2, 3) Stop: 10/27/22 01:03
[2022-09-27 08:07] LABS: BUN Creatinine Ratio 15.9 (10-20); Calcium 8.7 mg/dl (8.6-10.3); Creatinine Clr Calc Pharmacy 91.3 ml/min; Est GFR (African American) 124.4 ml/min; Est GFR (Non-African American) 107.4 ml/min; Potassium 4.5 mmol/L (3.5-5.1)
[2022-09-27 08:20] LABS: Anisocytosis Present; Basophils # (auto) 0.03 K/uL (0-0.2); Basophils % (auto) 0.5 %; Eosinophils # (auto) 0.23 K/uL (0-0.50); Hematocrit (blood only) 28.6 % (37.0-47.0); Hypochromasia Present; Immature Granulocytes # (auto) 0.01 K/uL (0.01-0.20); Immature Granulocytes % (auto) 0.2 %; Lymphocytes # (auto) 1.62 K/uL (1.2-3.4); Lymphocytes % (auto) 28.5 %; Mean Corpuscular Hemoglobin 18.9 pg (25.0-34.0); Mean Corpuscular Volume 67.5 fL (80.0-100.0); Mean Platelet Volume 9.3 fL (9.4-12.4); Microcytosis Present; Monocytes # (auto) 0.45 K/uL (0.11-0.59); Monocytes % (auto) 7.9 %; Neutrophils # (auto) 3.35 K/uL (1.40-6.50); Neutrophils % (auto) 58.9 %; Platelet Count 320 K/uL (130-400); RDW Coefficient of Variation 20.8 % (11.5-14.5); RDW Standard Deviation 48.9 fL (36.4-46.3); Red Blood Count 4.24 M/uL (4.20-5.40); White Blood Count 5.69 K/ul (4.8-10.8)
--- NOTE | 2022-09-27 12:58 | OB/GYN Consultation ---
Date of Consultation September 27, 2022 Assessment & Plan (1) Anemia: (2) Menorrhagia with regular cycle: Plan: Menorrhagia with regular menses stable after receiving 1 unit of packed IBC planned. Patient to follow-up as an outpatient Plan f/u as out patient Admission and Anticipated Discharge Date Admission Date: September 26, 2022 History of Present Illness Attending Physician: Elsie Peraza DO History of Present Illness Patient is a 42-year-old seen in the ER for right lower abdominal pain on 09/26/2022. Patient reports pain was sudden and radiated to the back. She also complained of nausea and some vomiting with it. She denies shortness of breath but did complain of urgency and frequency. Patient was seen in the emergency room patient included CT scan and some labs. CT scan was unremarkable Labs showed showed hemoglobin of 6.1. She was admitted overnight and transfused with 1 unit of packed RBC patient has right lower quadrant abdominal pain has significantly improved PROGRAM MANAGEMENT SPECIALIST consult was therefore placed after she complained of history of heavy menses in the last 3 months. Patient reports her PROGRAM MANAGEMENT SPECIALIST care is done by her PCP. Seen patient at bedside today she is resting comfortably in bed she denies no shortness of breath no fever or chills as stated above pain is significantly improved. She did also mention to me that her menses were normal till the last 3 months they have been regular but slightly heavy. Patient presently is not having her menses and her last menses was 3 weeks ago I reviewed her past medical surgical social family history as well as PROGRAM MANAGEMENT SPECIALIST history Allergies Allergy/AdvReac Type Severity Reaction Status Date / Time No Known Allergies Unverified 09/26/22 21:36 Home Medications Medication Instructions Recorded Confirmed Type albuterol sulfate 90 mcg/actuation 2 puff inhalation QID PRN 10/12/18 09/26/22 History aerosol inhaler Shortness Of Breath Or Wheezing albuterol sulfate 2.5 mg/3 mL 2.5 mg inhalation Q4H PRN 09/26/22 09/26/22 History (0.083 %) solution for nebulization Shortness Of Breath Or Wheezing ibuprofen 200 mg tablet 600 mg PO TID PRN Pain 09/26/22 09/26/22 History Patient History Medical History Asthma Psoriasis Substance use disorder Syncopal episodes Tobacco use Surgical History History of foot surgery 2010 Clacaneal fracture Family History Other Diabetes Lung cancer Social History Smoking Status: Current every day smoker Cigarettes Per Day: 10; Second Hand Exposure: No; Do You Dip or Chew Tobacco: No; Tobacco Cessation Education Requested by Patient: No Hx Alcohol Use: No Hx Substance Use: No Preferred Language: Bots[place] Communication Ability: Effective Pourer Metal Required: No Beliefs That Will Affect Care: None marital status: Single marital status details: Significant Other Current Living Situation: Family Current Living Situation Comment: lives with sister Other Information That Helps Us Care for You: No Feels Safe at Home: Yes Safety Concerns: Feels Safe At This Time Assistive Devices: Contacts Results & Data Vital Signs (Past 12 Hours) Vital Signs Temp Pulse Pulse Resp BP BP Pulse Ox 09/27/22 07:58 36.8 C 77 17 128/77 99 09/27/22 07:16 81 09/27/22 04:13 36.6 C 91 H 20 129/76 97 09/27/22 04:13 36.6 C 91 H 20 129/76 97 09/27/22 04:00 36.7 C 85 18 131/60 96 09/27/22 03:00 36.6 C 94 H 18 123/67 96 09/27/22 02:36 101 H 09/27/22 02:30 36.6 C 96 H 18 109/65 96 09/27/22 02:15 36.6 C 89 18 124/71 97 09/27/22 01:55 36.6 C 89 18 106/60 98 09/27/22 01:11 95 H 18 127/77 98 09/27/22 01:00 82 16 130/72 99 O2 Del Method 09/27/22 07:58 Room Air 09/27/22 07:16 09/27/22 04:13 09/27/22 04:13 09/27/22 04:00 09/27/22 03:00 09/27/22 02:36 09/27/22 02:30 09/27/22 02:15 09/27/22 01:55 09/27/22 01:11 Room Air 09/27/22 01:00 Room Air PG Care Time/CCT Total # of Minutes Spent Total Time Spent with Patient: Total time spent is greater than 50% in coordination of care (as documented) at patient's floor/unit and/or counseling patient: Coding Level of Care Code 76791 IN/OBS CONSULT LVL 5,80M Diagnoses Anemia D64.9 Menorrhagia with regular cycle N92.0
--- NOTE | 2022-09-27 14:21 | Discharge Summary ---
Discharge Summary Date of Service September 27, 2022 Notes For Next Care Provider Medication Changes From Visit NEW cyanocobalamin 1000mcg PO daily NEW Ferrous sulfate 325mg PO TID Admission HPI Per Admitting Provider History obtained from patient, family, and records. Medical history significant for asthma, ongoing tobacco abuse. Last confinement October 2018 for asthma exacerbation. 1 day history of achy right-sided abdominal/flank pain with nausea, no emesis. No black/no bloody stools. Similar to menstrual cramps prior to periods but more intense. History heavy menses the last 3 months, last period was about 3 weeks ago. Intermittent shortness of breath at home especially on exertion. Transient headache symptoms last month. Patient feels legs more swollen than usual. Patient brought to ER by family for evaluation. 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, no EtOH intake, hotel employee Principal Dx & Hospital Course #1 = Principal Diagnosis (1) Symptomatic anemia: (2) Iron deficiency anemia: (3) B12 deficiency: (4) Smoking: (5) RLQ abdominal pain: (6) Menorrhagia: Updated Medication List Medication Instructions Recorded Confirmed Type albuterol sulfate 90 mcg/actuation 2 puff inhalation QID PRN 10/12/18 09/26/22 History aerosol inhaler Shortness Of Breath Or Wheezing albuterol sulfate 2.5 mg/3 mL 2.5 mg inhalation Q4H PRN 09/26/22 09/26/22 History (0.083 %) solution for nebulization Shortness Of Breath Or Wheezing ibuprofen 200 mg tablet 600 mg PO TID PRN Pain 09/26/22 09/26/22 History cyanocobalamin (vitamin B-12) 1,000 mcg PO DAILY #30 caps 09/27/22 Rx 1,000 mcg capsule ferrous sulfate 325 mg (65 mg 325 mg PO TID #90 tabs 09/27/22 Rx iron) tablet Hospital Stay Data Consultations 09/27/22 00:15 Consult Gynecology Routine Diagnostic Imagining Performed 09/26/22 18:50 CT Abd and Pelvis [CT abd pelvis wo con] Stat 09/26/22 22:36 US pelvic complete Stat US transvaginal Stat US venous doppler LE BI Stat Pending Results Patient Have Any Pending Studies at Discharge: No Discharge Instructions Given to Patient (Per Discharging Provider) Please take all medications as instructed on discharge list below. You were found to have iron deficiency anemia, possibly from your recent heavy menses. You were transfused one unit of blood with an appropriate response in Hemoglobin increase. You were seen by Dr. Cardozo from [facility] who would like to follow-up with you in the clinic to continue working up this issue. Please follow-up with your primary care physician within one week of discharge from the hospital. You will need a repeat CBC and iron panel (labs) in the next couple of weeks, which may be ordered by your primary care physician. You will be placed on oral iron supplements for iron deficiency as well as B12 supplementation for B12 deficiency. Smoking cessation is strongly recommended. It was a pleasure taking care of you! Please call if you have any questions or problems. You can reach a [facility] hospitalist on duty at [facility] 24 hours a day by calling [phone]. Take care of yourself. Elsie Peraza, [facility] Hospitalist
== END 2022-09-27 14:37 | disposition home or self-care (01) | DRG 812 ==
LOC: ED 17:16 → 2N 22:38